=== PATIENT | female | born 1965 | race Caucasian/White ===

== ENCOUNTER 2020-05-22 07:43 | Outpatient (CLI) | payer OTHER, SELFPAY ==
--- NOTE | ~2020-05-22 | CT_ITS ---
EXAMINATION: CT abdomen pelvis w con DATE: 05/22/2020 08:23 INDICATION: Severe right lower quadrant pain which is worsening TECHNIQUE: Computed tomography (CT) of the abdomen and pelvis was performed with 100 cc Omnipaque 350 intravenous contrast. The dose-length product was 700.75 mGy-cm. Automated exposure control and iter ative reconstruction technique were employed. COMPARISON: None. FINDINGS: Lung bases are unremarkable. Heart size is normal. No significant pleural or pericardial ef fusion. Small hiatal hernia. No significant vascular abnormality. No lymphadenopathy. The liver, spleen, pancreas, adrenal glands and kidneys are unremarkable. The appendix is not positiv milad visualized. There is no pericecal inflammatory change to suggest appendicitis. Gallbladder is mi ldly distended. No biliary dilatation. No abnormal pelvic masses or fluid collections. 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 No abnormal pelvic masses or fluid collections. No evidence for obstruction. No free air or free fluid. Moderate lower lumbar s pondylosis. IMPRESSION: 1. No acute abdominal abnormality. Reviewed, dictated and finalized at location B.
[2020-05-22 07:57] LABS: Add Urine Microscopic? NO; Appearance Urine Clear (Clear); Bilirubin Urine Negative (Negative); Blood Urine Negative (Negative); Color Urine Yellow (Yellow); Glucose Urine UA Negative (Negative); Ketones Urine Negative (Negative); Leukocyte Esterase Ur Negative (Negative); Nitrate Urine Negative (Negative); Protein Urine Negative (Negative); Urobilinogen Urine 0.2 mg/dL (0.2-1.0)
[2020-05-22 08:28] LABS: Basophils Absolute Auto 0.07 K/mm3 (0.00-0.10); Basophils Percent Auto 1.5 % (0.0-1.0); Eosinophils Absolute Auto 0.07 K/mm3 (0.02-0.50); Eosinophils Percent Auto 1.5 % (1.0-6.0); Hematocrit 37.5 % (35.0-49.0); Hemoglobin 12.2 g/dL (12.0-15.0); Immature Granulocyte Absolute 0.01 K/mm3 (0.00-0.00); Immature Granulocyte Percent A 0.2 % (0.0-0.0); Lymphocytes Absolute Auto 1.15 K/mm3 (1.10-4.50); Lymphocytes Percent Auto 24.7 % (18.0-42.0); Mean Corpuscular HGB Conc 32.5 g/dL (32.0-36.0); Mean Corpuscular Hemoglobin 30.7 pg (27.0-31.0); Mean Corpuscular Volume 94.5 fL (78.0-102.0); Mean Platelet Volume 9.2 fl (9.2-11.8); Monocytes Absolute Auto 0.29 K/mm3 (0.10-0.90); Monocytes Percent Auto 6.2 % (2.0-11.0); Neutrophils Absolute Auto 3.1 K/mm3 (1.7-7.2); Neutrophils Percent Auto 65.9 % (50.0-70.0); Platelet Count Result 190 K/mm3 (150-420); Red Blood Count 3.97 M/mm3 (4.20-5.40); Red Cell Distribution Width 13.2 % (11.6-14.4); White Blood Count 4.7 K/mm3 (4.8-10.8)
[2020-05-22 09:10] LABS: Alanine Aminotransferase 19 U/L (14-59); Albumin Level 3.2 g/dL (3.4-5.0); Alkaline Phosphatase 70 U/L (46-116); Anion Gap 7.2 mmol/L (7-16); Aspartate Amino Transferase 15 U/L (15-37); Bilirubin,Total 0.6 mg/dL (0.00-1.00); Blood Urea Nitrogen 13 mg/dL (7-18); Calcium 7.8 mg/dL (8.5-10.1); Carbon Dioxide 30 mmol/L (21-32); Chloride 101 mmol/L (98-108); Estimated Glomerular Filt Rate > 60; Glucose 100 mg/dL (70-99); Osmolality Calculated 278 mOsm/kg (285-295); Potassium 4.2 mmol/L (3.5-5.1); Sodium 134 mmol/L (136-145); Thyroid Stimulating Hormone 2.25 uIU/mL (0.36-3.74); Total Protein 6.2 g/dL (6.4-8.2)
== END 2020-05-22 07:44 | disposition home or self-care (01) ==
LOC: CHSIMG 07:45
PROVIDERS: PCP Internal Medicine; Visit Provider Internal Medicine
DX: R10.31 Right lower quadrant pain (principal); E03.9 Hypothyroidism, unspecified
CPT/HCPCS: 36415; 74177; 80053; 81003; 84443; 85025; Q9965

== ENCOUNTER 2020-06-29 08:43 | Outpatient (CLI) | payer OTHER, SELFPAY ==
--- NOTE | ~2020-06-29 | MM_ITS ---
EXAMINATION: MM screening [facility] BI w ambar HISTORY: Screening mammogram TECHNIQUE: Craniocaudal and mediolateral oblique 3-D tomosynthesis images were obtained and synthetic 2-D images were generated. CAD analysis was submitted and interpreted. COMPARISON: 06/12/2019, 06/04/2018, 06/01/2017 BREAST PARENCHYMAL COMPOSITION: There are scattered areas of fibroglandular density. FINDINGS: There is no evidence of suspicious mass, calcification, or architectural distortion to sugg est malignancy in either breast. There has been no suspicious interval change. IMPRESSION: 1. No mammographic evidence of malignancy. 2. Recommend routine screening mammography in one year. BI-RADS Category 1: Negative Reviewed, dictated and finalized at location A.
== END 2020-06-29 08:44 | disposition home or self-care (01) ==
PROVIDERS: PCP Internal Medicine; Visit Provider Nurse Practitioner
DX: Z12.31 Encounter for screening mammogram for malignant neoplasm of breast (principal)
CPT/HCPCS: 77063; 77067

== ENCOUNTER 2020-07-15 08:56 | Outpatient (CLI) | payer OTHER, SELFPAY ==
[2020-07-18 11:36] LABS: Vitamin D 25 Hydroxy 54 ng/mL (30-100)
== END 2020-07-15 08:57 | disposition home or self-care (01) ==
LOC: CHSLAB 08:58
PROVIDERS: PCP Internal Medicine; Visit Provider Nurse Practitioner
DX: E55.9 Vitamin D deficiency, unspecified (principal)
CPT/HCPCS: 36415; 82306

== ENCOUNTER 2021-01-29 07:43 | Outpatient (CLI) | payer OTHER, SELFPAY ==
--- NOTE | ~2021-01-29 | NM_ITS ---
EXAMINATION: NM hepatobiliary w pharm DATE: 01/29/2021 10:00 INDICATION: Dyspepsia with one year of abdominal pain. COMPARISON: CT dated 05/22/2020 TECHNIQUE: 5.9 mCi Tc-99m mebrofenin (Choletec) was administered intravenously. Scintigraphic images of the abdomen were obtained for one hour. 1.7 mcg sincalide (Kinevac) was administered by slow intr avenous infusion, and imaging was continued for 30 minutes. Gallbladder ejection fraction was calcula nichole by the technologist. FINDINGS: There is normal clearance of radiotracer from the blood pool. There is homogeneous tracer uptake by t he liver. Activity progresses to the gallbladder and bowel. The gallbladder ejection fraction (GBEF) is 7% (normal 10-90%, but most patient with gallbladder dysfunction have GBEF < 35% which does overl ap with the normal range). IMPRESSION: 1. Significantly decreased gallbladder ejection fraction which can be seen with gallbladder dysfunct ion or chronic cholecystitis in the appropriate clinical setting. Reviewed, dictated and finalized at location A. IMPRESSION: 1. Significantly decreased gallbladder ejection fraction which can be seen wit h gallbladder dysfunction or chronic cholecystitis in the appropriate clinical setting.
[2021-01-29 07:58] LABS: Basophils Absolute Auto 0.05 K/mm3 (0.00-0.10); Basophils Percent Auto 0.8 % (0.0-1.0); Eosinophils Absolute Auto 0.11 K/mm3 (0.02-0.50); Eosinophils Percent Auto 1.7 % (1.0-6.0); Hematocrit 39.9 % (35.0-49.0); Hemoglobin 12.9 g/dL (12.0-15.0); Immature Granulocyte Absolute 0.03 K/mm3 (0.00-0.00); Immature Granulocyte Percent A 0.5 % (0.0-0.0); Lymphocytes Absolute Auto 1.46 K/mm3 (1.10-4.50); Lymphocytes Percent Auto 22.4 % (18.0-42.0); Mean Corpuscular HGB Conc 32.3 g/dL (32.0-36.0); Mean Corpuscular Hemoglobin 30.4 pg (27.0-31.0); Mean Corpuscular Volume 94.1 fL (78.0-102.0); Mean Platelet Volume 9.4 fl (9.2-11.8); Monocytes Absolute Auto 0.35 K/mm3 (0.10-0.90); Monocytes Percent Auto 5.4 % (2.0-11.0); Neutrophils Absolute Auto 4.5 K/mm3 (1.7-7.2); Neutrophils Percent Auto 69.2 % (50.0-70.0); Platelet Count Result 227 K/mm3 (150-420); Red Blood Count 4.24 M/mm3 (4.20-5.40); Red Cell Distribution Width 13.2 % (11.6-14.4); White Blood Count 6.5 K/mm3 (4.8-10.8)
[2021-01-29 08:45] LABS: Alanine Aminotransferase 23 U/L (14-59); Albumin Level 3.5 g/dL (3.4-5.0); Alkaline Phosphatase 82 U/L (46-116); Anion Gap 9 mmol/L (8-16); Aspartate Amino Transferase 11 U/L (15-37); Bilirubin,Total 0.5 mg/dL (0.00-1.00); Blood Urea Nitrogen 20 mg/dL (7-18); Calcium 8.7 mg/dL (8.5-10.1); Carbon Dioxide 29 mmol/L (21-32); Chloride 102 mmol/L (98-108); Estimated Glomerular Filt Rate > 60; Glucose 105 mg/dL (70-99); Osmolality Calculated 292 mOsm/kg (285-295); Potassium 4.3 mmol/L (3.5-5.1); Sodium 140 mmol/L (136-145); Thyroid Stimulating Hormone 3.33 uIU/mL (0.36-3.74); Total Protein 6.8 g/dL (6.4-8.2)
[2021-01-29 09:56] LABS: Add Urine Microscopic? YES; Appearance Urine Clear (Clear); Bilirubin Urine Negative (Negative); Blood Urine Negative (Negative); Color Urine Yellow (Yellow); Glucose Urine UA Negative (Negative); Ketones Urine Negative (Negative); Leukocyte Esterase Ur Negative (Negative); Nitrate Urine Positive (Negative); Protein Urine Negative (Negative); Urobilinogen Urine 0.2 mg/dL (0.2-1.0); pH Urine 6.5 (5.0-8.0)
[2021-01-29 10:04] LABS: Bacteria Urine 3+ /hpf; RBC Urine None seen /hpf (0-2); Squamous Epithelial Cell Urine Few /hpf (Few)
[2021-02-03 13:13] LABS: Tissue Transglutaminase IgG Ab 2 U/mL (<6)
[2021-02-05 16:01] LABS: Tissue Transglutaminase IgA Ab 1 U/mL (<4)
== END 2021-01-29 07:44 | disposition home or self-care (01) ==
PROVIDERS: PCP Internal Medicine; Visit Provider Internal Medicine
DX: R10.13 Epigastric pain (principal); E83.51 Hypocalcemia; E88.09 Other disorders of plasma-protein metabolism, not elsewhere classified; N39.0 Urinary tract infection, site not specified
CPT/HCPCS: 36415; 78227; 80053; 81001; 83516; 84443; 85025; 87077; 87086; 87088; 87186; A9537; J2805

== ENCOUNTER 2021-02-11 08:19 | Outpatient (CLI) | payer OTHER, SELFPAY ==
--- NOTE | ~2021-02-11 | US_ITS ---
EXAMINATION: US abdomen limited DATE: 02/11/2021 08:41 INDICATION: Right abdominal pain. TECHNIQUE: Multiple grayscale and Doppler ultrasound images of the abdomen were obtained. COMPARISON: CT abdomen and pelvis 05/22/2020 FINDINGS: The visualized portions of the head, body, and tail of the pancreas are normal. The liver i s normal without focal lesion. No liver surface nodularity. There is normal flow in main portal vein. The gallbladder is normal in size and contains sludge. No gallstones or gallbladder wall thickening. There was no sonographic Chambers sign. The common duct is normal and measures 4 mm. IMPRESSION: 1. Gallbladder sludge. No evidence of acute cholecystitis. Reviewed, dictated and finalized at location A.
== END 2021-02-11 08:20 | disposition home or self-care (01) ==
LOC: CHSIMG 08:20
PROVIDERS: PCP Internal Medicine; Visit Provider Surgery
DX: K82.8 Other specified diseases of gallbladder (principal)
CPT/HCPCS: 76705

== ENCOUNTER 2021-04-14 08:00 | Outpatient (CLI) | payer OTHER, SELFPAY ==
[2021-04-16 13:44] LABS: Vitamin D 25 Hydroxy 70 ng/mL (30-100)
== END 2021-04-14 08:01 | disposition home or self-care (01) ==
LOC: CHSLAB 08:02
PROVIDERS: PCP Internal Medicine; Visit Provider Nurse Practitioner
DX: E55.9 Vitamin D deficiency, unspecified (principal)
CPT/HCPCS: 36415; 82306

== ENCOUNTER 2021-06-30 09:03 | Outpatient (CLI) | payer OTHER, SELFPAY ==
--- NOTE | ~2021-06-30 | MM_ITS ---
EXAMINATION: MM screening [facility] BI w ambar HISTORY: Screening mammogram TECHNIQUE: Craniocaudal and mediolateral oblique 3-D tomosynthesis images were obtained and synthetic 2-D images were generated. CAD analysis was submitted and interpreted. COMPARISON: 06/29/2020, 06/12/2019, 06/04/2018 BREAST PARENCHYMAL COMPOSITION: There are scattered areas of fibroglandular density. FINDINGS: RIGHT BREAST: An asymmetry is present in the anterior third of the slightly inner breast on the crani ocaudal view.. LEFT BREAST: There is an obscured mass in the subareolar aspect of the breast. IMPRESSION: 1. Bilateral breast findings as described above. 2. Additional mammographic views and possible breast ultrasound are recommended. BI-RADS Category 0: Incomplete: Needs additional imaging evaluation. Reviewed, dictated and finalized at location A. IMPRESSION: 1. Bilateral breast findings as described above. 2. Additional mammographic views and possible breast ultrasound are recommended . BI-RADS Category 0: Incomplete: Needs additional imaging evaluation.
== END 2021-06-30 09:04 | disposition home or self-care (01) ==
LOC: CHSIMG 09:04
PROVIDERS: PCP Internal Medicine; Visit Provider Nurse Practitioner
DX: Z12.31 Encounter for screening mammogram for malignant neoplasm of breast (principal)
CPT/HCPCS: 77063; 77067

== ENCOUNTER 2021-07-02 08:55 | Outpatient (CLI) | payer OTHER, SELFPAY ==
--- NOTE | ~2021-07-02 | MMUS_ITS ---
EXAMINATION: MM diagnostic [facility] BI w ambar, US breast BI limited HISTORY: Right breast asymmetry and subareolar left breast mass on screening mammogram TECHNIQUE: Additional 3-D tomosynthesis images of the breasts were performed and synthetic 2-D images were generated. CAD analysis was submitted and interpreted. High resolution limited bilateral breast ultrasound was performed. COMPARISON: 06/30/2021, 06/29/2020, 06/12/2019, 06/04/2018 FINDINGS: MAMMOGRAPHIC FINDINGS: Left breast: There is a persistent obscured, equal density mass in the slightly inner, subareolar lef t breast measuring approximately 2.1 cm. Right breast: An asymmetry persists in the anterior third of the slightly inner right breast at the 3 :00 location 2 cm from the nipple. ULTRASOUND: Left breast: There is a 1.9 cm subareolar cyst corresponding to the mammographic finding in question. Right breast: There is a 4 mm x 2 mm oval, circumscribed, parallel, hypoechoic mass at the 4:00 locat ion 2 cm from the nipple with no posterior features or internal vascularity. A 4 mm x 3 mm mass with similar sonographic features is seen at the same location. IMPRESSION: 1. Probably benign right breast masses. 2. Recommend 6 month follow-up right diagnostic mammogram and ultrasound. BI-RADS category 3, probably benign findings. Reviewed, dictated and finalized at location A. IMPRESSION: 1. Probably benign right breast masses. 2. Recommend 6 month follow-up right diagnostic mammogram and ultrasound. BI-RADS category 3, probably benign findings.
== END 2021-07-02 08:56 | disposition home or self-care (01) ==
LOC: CHSIMG 08:56
PROVIDERS: PCP Internal Medicine; Visit Provider Nurse Practitioner
DX: R92.8 Other abnormal and inconclusive findings on diagnostic imaging of breast (principal)
CPT/HCPCS: 76642; 77062; 77066; G0279

== ENCOUNTER 2021-07-05 12:20 | Outpatient (CLI) | payer OTHER, SELFPAY ==
--- NOTE | ~2021-07-05 | DEXA_ITS ---
Bone Density Report Name: Yessica Smith Age: 56 Sex: Female Ethnicity: White Date of : 1965 Indication: hyperparathyroidism; hysterectomy; Referring Provider: Leila, Elva Study: Bone densitometry was performed. Exam Date: July 05, 2021 Accession number: [id number] Bone Density: Region BMD T-score Z-score Classification AP Spine(L1, L2, L3) 1.130 1.0 2.3 Normal Femoral Neck (Left) 0.859 0.1 1.3 Normal Total Hip (Left) 1.007 0.5 1.4 Normal Femoral Neck (Right) 0.873 0.2 1.4 Normal Total Hip (Right) 1.082 1.1 2.0 Normal Femoral Neck Mean 0.866 0.2 1.3 Normal Total Hip Mean 1.045 0.8 1.7 Normal World Health Organization criteria for BMD impression classify patients as: Normal (T-score at or above -1.0), Osteopenia (T-score between -1.0 and -2.5), or Osteoporosis (T-score at or below -2.5). 10-year Fracture Risk: FRAX not reported because: Premenopausal woman All T-scores for Spine Total, Hip Total, Femoral Neck at or above -1.0 Previous Exams: Region Exam Age BMD T-score BMD Change BMD Change Date g/cm2 vs Baseline vs Previous AP Spine (L1-L3) 07/05/2021 56 1.130 1.0 0.026 (2.4%)# 0.025 (2.2%)# 06/12/2019 53 1.105 0.8 0.002 (0.1%)! -0.010 (-0.9%) 05/04/2016 50 1.115 0.9 0.011 (1.0%)! 0.081 (7.8%)* 08/26/2013 48 1.034 0.1 -0.070 (-6.3%) -0.070 (-6.3%) 01/09/2009 43 1.104 0.8 Total Hip(Left) 07/05/2021 56 1.007 0.5 0.005 (0.5%)# 0.015 (1.6%)# 06/12/2019 53 0.992 0.4 -0.010 (-1.0%) -0.020 (-2.0%) 05/04/2016 50 1.012 0.6 0.010 (1.0%) 0.028 (2.9%)* 08/26/2013 48 0.984 0.3 -0.019 (-1.9%) -0.019 (-1.9%) 01/09/2009 43 1.002 0.5 Total Hip(Right) 07/05/2021 56 1.082 1.1 0.057 (5.6%)# 0.064 (6.3%)# 06/12/2019 53 1.018 0.6 -0.007 (-0.6%) 0.009 (0.9%) 08/26/2013 48 1.009 0.5 -0.016 (-1.6%) -0.016 (-1.6%) 01/09/2009 43 1.025 0.7 *Denotes significance at 95% confidence level, LSC for AP Spine = 0.022 g/cm2, LSC for Total Hip = 0.027 g/cm2 # Denotes dissimilar scan types or analysis methods Clinical Information Provided by Patient: Has used the following medications: HRT (i.e. estrogen/hormone therapy), Vitamin D Has the following medical conditions: Hyperparathyroidism, Hysterectomy Patient maximum height was 65 No regular weight bearing exercise Drinks caffeinated beverages Onset of menses at age 11 Premenopausal Number of children 1 ---
== END 2021-07-05 12:21 | disposition home or self-care (01) ==
LOC: CHSIMG 12:22
PROVIDERS: PCP Internal Medicine; Visit Provider Nurse Practitioner
DX: Z13.820 Encounter for screening for osteoporosis (principal)
CPT/HCPCS: 77080

== ENCOUNTER 2021-09-29 07:05 | Outpatient (CLI) | payer OTHER, SELFPAY ==
[2021-09-29 07:18] LABS: Hematocrit 40.1 % (35.0-49.0); Hemoglobin 12.9 g/dL (12.0-15.0); Mean Corpuscular HGB Conc 32.2 g/dL (32.0-36.0); Mean Corpuscular Hemoglobin 30.2 pg (27.0-31.0); Mean Corpuscular Volume 93.9 fL (78.0-102.0); Mean Platelet Volume 9.5 fl (9.2-11.8); Platelet Count Result 246 K/mm3 (150-420); Red Blood Count 4.27 M/mm3 (4.20-5.40); White Blood Count 6.1 K/mm3 (4.8-10.8)
[2021-09-29 08:48] LABS: Anion Gap 10 mmol/L (8-16); Blood Urea Nitrogen 15 mg/dL (7-18); Calcium 8.5 mg/dL (8.5-10.1); Carbon Dioxide 27 mmol/L (21-32); Chloride 103 mmol/L (98-108); Estimated Glomerular Filt Rate > 60; Glucose 99 mg/dL (70-99); Osmolality Calculated 290 mOsm/kg (285-295); Potassium 4.5 mmol/L (3.5-5.1); Sodium 140 mmol/L (136-145)
== END 2021-09-29 07:06 | disposition home or self-care (01) ==
PROVIDERS: PCP Internal Medicine
DX: Z01.818 Encounter for other preprocedural examination (principal)
CPT/HCPCS: 36415; 80048; 85027

== ENCOUNTER 2021-12-13 11:20 | Outpatient (CLI) | payer OTHER, SELFPAY ==
--- NOTE | ~2021-12-13 | XR_ITS ---
XR hand LT min 3V DATE: 12/13/2021 11:33 INDICATION: Left hand pain, third digit pain. TECHNIQUE: 3 views COMPARISON: None FINDINGS: No fracture or dislocation, periosteal reaction or bone destruction. No erosive change or c hondrocalcinosis. IMPRESSION: No significant abnormality Reviewed, dictated and finalized at location A. IDER ENROLLMENT SPECIALIST IMPRESSION: No significant abnormality
== END 2021-12-13 11:21 | disposition home or self-care (01) ==
LOC: CHSIMG 11:22
PROVIDERS: PCP Internal Medicine; Visit Provider Internal Medicine
DX: M79.642 Pain in left hand (principal)
CPT/HCPCS: 73130

== ENCOUNTER 2022-01-03 07:23 | Outpatient (CLI) | payer OTHER, SELFPAY ==
[2022-01-03 09:06] LABS: Alanine Aminotransferase 20 U/L (14-59); Albumin Level 3.5 g/dL (3.4-5.0); Alkaline Phosphatase 83 U/L (46-116); Anion Gap 9 mmol/L (8-16); Aspartate Amino Transferase 13 U/L (15-37); Bilirubin,Total 0.5 mg/dL (0.00-1.00); Blood Urea Nitrogen 15 mg/dL (7-18); Calcium 8.5 mg/dL (8.5-10.1); Carbon Dioxide 27 mmol/L (21-32); Chloride 103 mmol/L (98-108); Cholesterol 257 mg/dL (0-200); Estimated Glomerular Filt Rate > 60; Glucose 102 mg/dL (70-99); HDL Direct 66 mg/dL (40-60); LDL Cholesterol Calculated 143 mg/dL (<130); Osmolality Calculated 288 mOsm/kg (285-295); Potassium 4.3 mmol/L (3.5-5.1); Sodium 139 mmol/L (136-145); Thyroid Stimulating Hormone 1.75 uIU/mL (0.36-3.74); Total Protein 6.9 g/dL (6.4-8.2); Triglycerides 239 mg/dL (0-150)
== END 2022-01-03 07:24 | disposition home or self-care (01) ==
LOC: CHSLAB 07:25
PROVIDERS: PCP Internal Medicine; Visit Provider Internal Medicine
DX: Z00.00 Encounter for general adult medical examination without abnormal findings (principal); E03.9 Hypothyroidism, unspecified
CPT/HCPCS: 36415; 80053; 80061; 84443

== ENCOUNTER 2022-04-16 08:03 | Outpatient (CLI) | payer OTHER, SELFPAY ==
[2022-04-16 08:46] LABS: Hemoglobin A1C 5.5 % (<5.7)
[2022-04-19 19:31] LABS: Vitamin D 25 Hydroxy 60 ng/mL (30-100)
[2022-04-24 04:48] LABS: Insulin Level Total 4.6 uIU/mL (<=19.6)
== END 2022-04-16 08:04 | disposition home or self-care (01) ==
LOC: CHSLAB 08:05
PROVIDERS: PCP Internal Medicine; Visit Provider Nurse Practitioner
DX: E55.9 Vitamin D deficiency, unspecified (principal); Z13.1 Encounter for screening for diabetes mellitus
CPT/HCPCS: 36415; 82306; 83036; 83525

== ENCOUNTER 2022-06-03 08:24 | Outpatient (CLI) | payer OTHER, SELFPAY ==
--- NOTE | ~2022-06-03 | MM_ITS ---
EXAMINATION: MM diagnostic patricia BI w ambar HISTORY: Six-month follow-up of probably benign right breast masses was recommended on 07/02/2021 bila teral diagnostic mammography and bilateral Limited breast ultrasound examinations. Screening of left breast. TECHNIQUE: ML, MLO and CC 3-D tomosynthesis images of both breasts were performed and synthetic 2-D i mages were generated. CAD analysis was submitted and interpreted. COMPARISON: 07/02/2021 bilateral diagnostic mammography and Limited bilateral breast ultrasound 06/30/2021, 06/25/2020, 06/12/2019 and 06/04/2018 bilateral screening mammogram examinations BREAST PARENCHYMAL COMPOSITION: There are scattered areas of fibroglandular density. FINDINGS: No suspicious mass, architectural distortion or significant new or developing density of ei ther breast is detected IMPRESSION: 1. No mammographic evidence of malignancy of either breast is evident 2. Right breast ultrasound follow-up is recommended as suggested on 07/02/2021 bilateral diagnostic ma mmography and limited breast ultrasound examinations BI-RADS Category 0: Incomplete: Needs additional imaging evaluation. Reviewed, dictated and finalized at location B. IMPRESSION: 1. No mammographic evidence of malignancy of either breast is evident 2. Right breast ultrasound follow-up is recommended as suggested on 07/02/2021 b ilateral diagnostic mammography and limited breast ultrasound examinations BI-RADS Category 0: Incomplete: Needs additional imaging evaluation.
== END 2022-06-03 08:25 | disposition home or self-care (01) ==
LOC: CHSIMG 08:25
PROVIDERS: PCP Internal Medicine; Visit Provider Obstetrics & Gynecology Gynecology
DX: R92.8 Other abnormal and inconclusive findings on diagnostic imaging of breast (principal)
CPT/HCPCS: 77062; 77066; G0279

== ENCOUNTER 2022-06-06 10:08 | Outpatient (CLI) | payer OTHER, SELFPAY ==
--- NOTE | ~2022-06-06 | US_ITS ---
US breast BI complete 06/06/2022 10:46 Indication: Follow-up bilateral breast masses Procedure: High-resolution bilateral complete ultrasound of the breasts including all 4 quadrants in the subareolar locations Comparison: Ultrasound dated 07/02/2021 and mammogram dated 06/03/2022 Findings: Right breast: At 4:00, 2 cm from the nipple there is a 4 mm cyst. No other masses identified. There a re normal-appearing right axillary lymph nodes. Left breast: In the subareolar location there is a 2.8 cm cyst. No suspicious masses to suggest malig destiny. There are normal left axillary lymph nodes. Impression: 1: No sonographic evidence for malignancy in either breast. Routine yearly screening mammogram and regular clinical breast examination are recommended. BI-RADS CATEGORY 2 - BENIGN FINDINGS Reviewed, dictated and finalized at location A. Impression: 1: No sonographic evidence for malignancy in either breast. Routine yearly screening mammogram and regular clinical breast examination are recommended. BI-RADS CATEGORY 2 - BENIGN FINDINGS
== END 2022-06-06 10:09 | disposition home or self-care (01) ==
LOC: CHSIMG 10:10
PROVIDERS: PCP Internal Medicine; Visit Provider Obstetrics & Gynecology Gynecology
DX: R92.8 Other abnormal and inconclusive findings on diagnostic imaging of breast (principal)
CPT/HCPCS: 76641

== ENCOUNTER 2022-07-09 07:10 | Outpatient (CLI) | payer OTHER, SELFPAY ==
[2022-07-09 07:24] LABS: Basophils Absolute Auto 0.08 K/mm3 (0.00-0.10); Basophils Percent Auto 1.1 % (0.0-1.0); Eosinophils Absolute Auto 0.16 K/mm3 (0.02-0.50); Eosinophils Percent Auto 2.2 % (1.0-6.0); Hemoglobin 12.7 g/dL (12.0-15.0); Immature Granulocyte Absolute 0.02 K/mm3 (0.00-0.00); Immature Granulocyte Percent A 0.3 % (0.0-0.0); Lymphocytes Absolute Auto 1.71 K/mm3 (1.10-4.50); Mean Corpuscular HGB Conc 32.6 g/dL (32.0-36.0); Mean Corpuscular Hemoglobin 30.2 pg (27.0-31.0); Mean Corpuscular Volume 92.6 fL (78.0-102.0); Mean Platelet Volume 9.4 fl (9.2-11.8); Monocytes Percent Auto 5.4 % (2.0-11.0); Neutrophils Absolute Auto 5.1 K/mm3 (1.7-7.2); Platelet Count Result 254 K/mm3 (150-420); Red Blood Count 4.21 M/mm3 (4.20-5.40); Red Cell Distribution Width 13.3 % (11.6-14.4); White Blood Count 7.4 K/mm3 (4.8-10.8)
[2022-07-09 07:32] LABS: Appearance Urine Clear (Clear); Bilirubin Urine Negative (Negative); Color Urine Light Yellow (Yellow); Glucose Urine UA Negative (Negative); Ketones Urine Negative (Negative); Leukocyte Esterase Ur Negative (Negative); Nitrate Urine Negative (Negative); Protein Urine Negative (Negative); pH Urine 7.5 (5.0-8.0)
[2022-07-09 07:36] LABS: Add Urine Microscopic? YES; Blood Urine Trace-Intact (Negative); RBC Urine 0-2 /hpf (0-2); WBC Urine 0-3 /hpf (0-3)
[2022-07-09 07:37] LABS: Bacteria Urine 1+ /hpf; Squamous Epithelial Cell Urine Moderate /hpf (Few)
[2022-07-09 07:49] LABS: Alanine Aminotransferase 19 U/L (14-59); Albumin Level 3.3 g/dL (3.4-5.0); Alkaline Phosphatase 87 U/L (46-116); Anion Gap 8 mmol/L (8-16); Aspartate Amino Transferase 14 U/L (15-37); Bilirubin,Total 0.5 mg/dL (0.00-1.00); Blood Urea Nitrogen 11 mg/dL (7-18); Calcium 8.8 mg/dL (8.5-10.1); Carbon Dioxide 28 mmol/L (21-32); Chloride 101 mmol/L (98-108); Cholesterol 206 mg/dL (0-200); Estimated Glomerular Filt Rate > 60; Glucose 108 mg/dL (70-99); HDL Direct 72 mg/dL (40-60); LDL Cholesterol Calculated 97 mg/dL (<130); Osmolality Calculated 284 mOsm/kg (285-295); Potassium 4.1 mmol/L (3.5-5.1); Sodium 137 mmol/L (136-145); Thyroid Stimulating Hormone 3.61 uIU/mL (0.36-3.74); Triglycerides 184 mg/dL (0-150)
== END 2022-07-09 07:11 | disposition home or self-care (01) ==
LOC: CHSLAB 07:11
PROVIDERS: PCP Internal Medicine; Visit Provider Internal Medicine
DX: Z00.00 Encounter for general adult medical examination without abnormal findings (principal); R60.9 Edema, unspecified
CPT/HCPCS: 36415; 80053; 80061; 81001; 84443; 85025

== ENCOUNTER 2022-10-06 00:44 | Day surgery (SDC) | payer OTHER, SELFPAY ==
[2022-09-21 10:38] VITALS: BMI 33.3
[2022-10-06 06:20] VITALS: BP 151/75; PULSE 80; RESP 18; TEMP 36.4; O2SAT 96
[2022-10-06] MEDS: LACTATED RINGERS 1,000 ML 150 ML IV CONT (06:31)
--- NOTE | 2022-10-06 07:20 | WPDANESEPPF ---
Anes - Initial Pre Proc Eval Procedure: Operation Date: 10/06/22 07:30 Proposed Procedures p Esophagogastroduodenoscopy EGD - William Palomo DO Date/Time: 10/06/22 07:20 Surgeon: William Palomo DO Pre Op Diagnosis: upper abd pain, dysphagia Patient Data Age: 57 Gender: F Height: 1.65 m Weight: 93.3 kg Last Vital Signs Temp 36.4 C L 10/06/22 06:20 Pulse 80 10/06/22 06:20 Resp 18 10/06/22 06:20 BP 151/75 H 10/06/22 06:20 Pulse Ox 96 10/06/22 06:20 O2 Del Method Room Air 10/06/22 06:20 Allergies Allergy/AdvReac Type Severity Reaction Status Date / Time Sulfa (Sulfonamide Allergy Unknown Rash Verified 10/06/22 06:18 Antibiotics) SULFAMERAZINE (Generic Allergy Y Uncoded 10/06/22 06:18 Allergy) Home Medications Medication Instructions Recorded Confirmed Type citalopram 20 mg tablet 20 mg PO DAILY 02/01/21 09/21/22 History ergocalciferol (vitamin D2) 1,250 1,250 mcg PO WEEKLY 02/01/21 09/21/22 History mcg (50,000 unit) capsule (Vitamin D2) estradiol 1 mg tablet 1 mg PO DAILY 02/01/21 09/21/22 History levothyroxine 100 mcg capsule 100 mcg PO DAILY 02/01/21 09/21/22 History vitamin B complex (B 1 tablet PO DAILY 02/01/21 09/21/22 History Complex-Vitamin B12 tablet) calcium polycarbophil 625 mg 1,250 mg PO DAILY 08/26/22 09/21/22 History tablet (FiberCon) omeprazole 20 mg capsule,delayed 20 mg PO DAILY 08/26/22 09/21/22 History release Patient hx anesthesia problems: none Family hx anesthesia problems: none Results Review: All pre-operative results and documents have been reviewed as part of the pre-operative evaluation. 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 Informed Consent: The patient's anesthetic plan and its attendant risks and benefits were discussed with the patient/family/POA. Questions were solicited and answers provided to the satisfaction of the patient/family/POA.
--- NOTE | 2022-10-06 07:28 | PM.IMHP ---
H&P: HPI History of Present Illness Date/Time: 10/06/22 07:28 Chief Complaint: Abdominal pain Narrative: 57 yo woman presenst for EGD. She has had some abdominal pain off and on. She occasionally has regurgitation of food and has taken omeprazole in the past. Review of Systems Review of Systems: All systems reviewed & are unremarkable except as noted in HPI and below Constitutional: Constitutional: Denies chills, Denies fever(s), Denies headache(s) and Denies weight loss Eyes: Eyes: Denies change in vision ENT: Denies dizziness, Denies headache(s), Denies neck mass and Denies throat swelling Cardiovascular: Cardiovascular: Denies chest pain, Denies lightheadedness and Denies dyspnea Respiratory: Respiratory: Denies cough, Denies dyspnea and Denies wheezing Gastrointestinal: Gastrointestinal: Denies abdominal pain, Denies change in bowel habits, Denies nausea and Denies vomiting Genitourinary: Genitourinary: Denies hematuria and Denies dysuria Musculoskeletal: Musculoskeletal: Reports as per HPI Integumentary/Breasts: Skin/Breast: Reports as per HPI Neurologic: Denies dizziness and Denies headache(s) Allergic/Immunologic: Allergic/Immunologic: Denies throat swelling and Denies wheezing PMFSH Past Medical History Medical History GERD (gastroesophageal reflux disease) Demian's disease Hyperlipidemia Surgical History Surgical History History of appendectomy As a child History of tonsillectomy and adenoidectomy As a child History of total abdominal hysterectomy vaginal approach Rectocele 10/[address] 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[employer] Spiritual care concerns: No Meds Home Medications and Allergies Home Medications Medication Instructions Recorded Confirmed Type citalopram 20 mg tablet 20 mg PO DAILY 02/01/21 09/21/22 History ergocalciferol (vitamin D2) 1,250 1,250 mcg PO WEEKLY 02/01/21 09/21/22 History mcg (50,000 unit) capsule (Vitamin D2) estradiol 1 mg tablet 1 mg PO DAILY 02/01/21 09/21/22 History levothyroxine 100 mcg capsule 100 mcg PO DAILY 02/01/21 09/21/22 History vitamin B complex (B 1 tablet PO DAILY 02/01/21 09/21/22 History Complex-Vitamin B12 tablet) calcium polycarbophil 625 mg 1,250 mg PO DAILY 08/26/22 09/21/22 History tablet (FiberCon) omeprazole 20 mg capsule,delayed 20 mg PO DAILY 08/26/22 09/21/22 History release Allergies Allergy/AdvReac Type Severity Reaction Status Date / Time Sulfa (Sulfonamide Allergy Unknown Rash Verified 10/06/22 06:18 Antibiotics) SULFAMERAZINE (Generic Allergy Y Uncoded 10/06/22 06:18 Allergy) Vital Signs Vital Signs - 24 hr 10/06/22 06:20 Temperature 36.4 C L Pulse Rate 80 Respiratory Rate 18 Blood Pressure 151/75 H Pulse Oximetry 96 Oxygen Delivery Room Air Exam Const: General: no acute distress and alert Orientation/consciousness: patient oriented x3 HENMT: Head: normocephalic and atraumatic Ears: hearing grossly normal bilaterally Face/Nose/Sinus: Normal nares present Mouth: Yes Normal oral and palatal mucosa present Eyes: Periorbital: periorbital findings normal Sclera: sclerae normal EOM: EOMs intact bilaterally Neck: Neck: normal visual inspection, no lymphadenopathy and trachea midline Chest: Chest palpation & inspection: normal inspection of the chest Resp: Effort & Inspection: normal respiratory effort Auscultation: clear to auscultation bilaterally Cardio: Jugular venous distension: no JVD Rate: regular rate Rhythm: regular rhyth
[2022-10-06 07:42] VITALS: BP 111/64; PULSE 60; RESP 22; O2SAT 98
[2022-10-06 07:52] VITALS: BP 114/77; PULSE 57; RESP 22; O2SAT 98
[2022-10-06 08:02] VITALS: BP 122/63; PULSE 70; RESP 24; O2SAT 98
== END 2022-10-06 08:11 | disposition home or self-care (01) ==
PROVIDERS: PCP Internal Medicine; Visit Provider Surgery
PROC: 0DJ08ZZ Inspection of Upper Intestinal Tract, Via Natural or Artificial Opening Endoscopic (ICD-10-PCS; CPT 43235; principal; 2022-10-06 07:30)
DX: K44.9 Diaphragmatic hernia without obstruction or gangrene (principal); K21.9 Gastro-esophageal reflux disease without esophagitis; E78.5 Hyperlipidemia, unspecified; E06.3 Autoimmune thyroiditis; E66.9 Obesity, unspecified; Z68.34 Body mass index [BMI] 34.0-34.9, adult
CPT/HCPCS: 43239; 87081; 88305; J2704; J7120

== ENCOUNTER 2022-12-28 07:02 | Outpatient (CLI) | payer OTHER, SELFPAY ==
--- NOTE | ~2022-12-28 | CT_ITS ---
CT Abdomen and Pelvis with contrast. History: Abdominal pain. Spiral CT of the abdomen and pelvis was performed after the administration of intravenous contrast. 1 00 cc of Omnipaque 350 was administered intravenously without complication. Dose reduction technique was used on this scan by utilizing automated exposure control and iterative reconstruction technique. The dose-length product (DLP) was 699.14 mGy-cm. COMPARISON: 05/22/2020 Findings: Scans through the lung bases demonstrate mild atelectatic change. The liver, spleen, pancreas, gallbladder, adrenals and kidneys are within normal limits. No evidence of aortic aneurysm. No lymphadenopathy is seen. There is no evidence of bowel obstruction. There is no evidence to suggest acute appendicitis or dive rticulitis. Images through the pelvis were performed. Urinary bladder unremarkable. No adnexal mass seen. No asci jackie is seen. Impression: No significant abnormalities seen. Reviewed, dictated and finalized at [facility]. INE MANAGERIAL SUPERVISOR Impression: No significant abnormalities seen.
[2022-12-28 07:49] LABS: Estimated Glomerular Filt Rate > 60
== END 2022-12-28 07:03 | disposition home or self-care (01) ==
LOC: CHSIMG 07:05
PROVIDERS: PCP Internal Medicine; Visit Provider Surgery
DX: R10.31 Right lower quadrant pain (principal)
CPT/HCPCS: 74177; Q9967

== ENCOUNTER 2023-03-03 07:17 | Outpatient (CLI) | payer OTHER, SELFPAY ==
[2023-03-03 07:32] LABS: Basophils Absolute Auto 0.06 K/mm3 (0.00-0.10); Basophils Percent Auto 0.9 % (0.0-1.0); Eosinophils Absolute Auto 0.12 K/mm3 (0.02-0.50); Eosinophils Percent Auto 1.8 % (1.0-6.0); Hematocrit 38.8 % (35.0-49.0); Hemoglobin 12.6 g/dL (12.0-15.0); Immature Granulocyte Absolute 0.02 K/mm3 (0.00-0.00); Immature Granulocyte Percent A 0.3 % (0.0-0.0); Lymphocytes Absolute Auto 1.59 K/mm3 (1.10-4.50); Lymphocytes Percent Auto 24.1 % (18.0-42.0); Mean Corpuscular HGB Conc 32.5 g/dL (32.0-36.0); Mean Corpuscular Hemoglobin 30.3 pg (27.0-31.0); Mean Corpuscular Volume 93.3 fL (78.0-102.0); Mean Platelet Volume 9.7 fl (9.2-11.8); Monocytes Absolute Auto 0.36 K/mm3 (0.10-0.90); Monocytes Percent Auto 5.5 % (2.0-11.0); Neutrophils Absolute Auto 4.4 K/mm3 (1.7-7.2); Neutrophils Percent Auto 67.4 % (50.0-70.0); Platelet Count Result 254 K/mm3 (150-420); Red Blood Count 4.16 M/mm3 (4.20-5.40); Red Cell Distribution Width 13.9 % (11.6-14.4); White Blood Count 6.6 K/mm3 (4.8-10.8)
[2023-03-03 07:38] LABS: Appearance Urine Clear (Clear); Bilirubin Urine Negative (Negative); Blood Urine Negative (Negative); Color Urine Light Yellow (Yellow); Glucose Urine UA Negative (Negative); Ketones Urine Negative (Negative); Leukocyte Esterase Ur Trace LEU/UL (Negative); Nitrate Urine Positive (Negative); Protein Urine Negative (Negative)
[2023-03-03 07:49] LABS: Add Urine Microscopic? YES
[2023-03-03 07:50] LABS: Bacteria Urine 2+ /hpf; RBC Urine 0-2 /hpf (0-2); Squamous Epithelial Cell Urine Few /hpf (Few); WBC Urine 16-20 /hpf (0-3)
[2023-03-03 08:08] LABS: Alanine Aminotransferase 27 U/L (14-59); Albumin Level 3.4 g/dL (3.4-5.0); Alkaline Phosphatase 88 U/L (46-116); Anion Gap 7 mmol/L (8-16); Aspartate Amino Transferase 19 U/L (15-37); Bilirubin,Total 0.4 mg/dL (0.00-1.00); Blood Urea Nitrogen 18 mg/dL (7-18); Calcium 8.6 mg/dL (8.5-10.1); Carbon Dioxide 29 mmol/L (21-32); Chloride 104 mmol/L (98-108); Cholesterol 218 mg/dL (0-200); Estimated Glomerular Filt Rate > 60; Glucose 108 mg/dL (70-99); HDL Direct 65 mg/dL (40-60); LDL Cholesterol Calculated 114 mg/dL (<130); Osmolality Calculated 292 mOsm/kg (285-295); Potassium 4.2 mmol/L (3.5-5.1); Sodium 140 mmol/L (136-145); Thyroid Stimulating Hormone 2.56 uIU/mL (0.36-3.74); Total Protein 6.9 g/dL (6.4-8.2); Triglycerides 195 mg/dL (0-150)
[2023-03-03 11:45] LABS: Hemoglobin A1C 5.5 % (<5.7)
== END 2023-03-03 07:18 | disposition home or self-care (01) ==
LOC: CHSLAB 07:18
PROVIDERS: PCP Internal Medicine; Visit Provider Internal Medicine
DX: E03.9 Hypothyroidism, unspecified (principal); E78.5 Hyperlipidemia, unspecified; R82.90 Unspecified abnormal findings in urine
CPT/HCPCS: 36415; 80053; 80061; 81001; 83036; 84443; 85025; 87077; 87086; 87088; 87186

== ENCOUNTER 2023-04-05 10:35 | Outpatient (CLI) | payer OTHER, SELFPAY ==
--- NOTE | ~2023-04-05 | CT_ITS ---
EXAMINATION: CT abdomen pelvis w con DATE: 04/05/2023 11:13 INDICATION: Right lower quadrant abdominal mass. TECHNIQUE: Computed tomography (CT) of the abdomen and pelvis was performed with 100 mL Omnipaque 350 intravenous contrast. Automated exposure control and iterative reconstruction technique were employe d. The dose-length product was 784.98 mGy-cm. COMPARISON: CT abdomen and pelvis 12/28/2022 FINDINGS: The visualized portions of the lung bases demonstrate mild atelectasis. No pleural effusion . The heart size is normal. No pericardial effusion. The liver, gallbladder, spleen, pancreas, adrena l glands, and right kidney are normal. There is cortical thinning of left kidney. There is a left ing uinal hernia containing fat. There is a right inguinal hernia containing trace ascites. There are no dilated loops of bowel. The appendix is normal. There is an infraumbilical ventral hernia containing fat. There is a right-sided spigelian hernia containing a wall of nonobstructed small bowel. There ar e no pathologically enlarged lymph nodes. There is no free intraperitoneal fluid. There is severe low er lumbar spondylosis. IMPRESSION: 1. Right-sided spigelian hernia containing a wall of nonobstructed small bowel. 2. Infraumbilical ventral hernia containing fat. 3. Left inguinal hernia containing fat. 4. Right inguinal hernia containing trace ascites. Reviewed, dictated and finalized at location A.
== END 2023-04-05 10:36 | disposition home or self-care (01) ==
PROVIDERS: PCP Internal Medicine; Visit Provider Internal Medicine Gastroenterology
DX: R19.03 Right lower quadrant abdominal swelling, mass and lump (principal); R10.31 Right lower quadrant pain; K43.9 Ventral hernia without obstruction or gangrene; K40.20 Bilateral inguinal hernia, without obstruction or gangrene, not specified as recurrent
CPT/HCPCS: 74177; Q9967

== ENCOUNTER 2023-04-13 02:05 | Inpatient (IN) | payer OTHER, SELFPAY ==
[2023-04-13] VITALS (14 sets, daily range): BP systolic 112–151; BP diastolic 59–74; PULSE 81–107; RESP 14–20; TEMP 35.5–37.2; O2SAT 92–100; BMI 34.0
--- NOTE | ~2023-04-13 | XR_ITS ---
Portable upright view of the abdomen Clinical history: NG tube placement Findings: NG tube is in satisfactory position. There are mildly air distended small bowel loops in th e upper abdomen. No free air. No abnormal mass lesion or calcification is seen. Osseous structures ar e intact. Impression: NG tube in satisfactory position. Possible small bowel obstruction. Reviewed, dictated and finalized at location . Impression: NG tube in satisfactory position. Possible small bowel obstruction.
--- NOTE | 2023-04-13 02:20 | PC.NURSE ---
Patient arrived on 3 Med-Surg at 02:05
--- NOTE | 2023-04-13 02:23 | PM.IMHP ---
H&P: HPI History of Present Illness Date/Time: 04/13/23 02:23 Chief Complaint: Abdominal pain Narrative: This is a 57-year-old female with past medical history significant for Demian's disease, GERD, inguinal hernia. Patient presents to outside hospital emergency room due to abdominal pain with nausea and vomiting of 1 day duration unable to eat anything or keep anything down not able to pass gas last bowel movement was the day before and he was her usual. Patient denies any weight loss hematemesis melena coffee-ground emesis or bright red blood per rectum. Pain is localized diffusely and periumbilical is crampy in nature rated at 5/10 intensity. Preliminary workup was significant for CT abdomen and pelvis was reported as: EXAMINATION: CT abdomen pelvis wo con DATE: 04/12/2023 22:40 INDICATION: Right-sided abdominal pain TECHNIQUE: Computed tomography (CT) of the abdomen and pelvis was performed without intravenous contrast. The dose-length product (DLP) was 710.41 mGy-cm. Automated exposure control and iterative reconstruction technique were employed. COMPARISON: 04/05/2023 FINDINGS: Minimal dependent atelectasis is present in the lung bases. The heart size is normal. A subareolar mass of the left breast has been previously characterized as a cyst. There is a small sliding hiatal hernia. The liver, spleen, pancreas, gallbladder, and adrenal glands are normal. There is cortical thinning of the left kidney. The right kidney is unremarkable. There is a right-sided spigelian hernia containing a short segment of small bowel. There are multiple fluid-filled loops of small bowel upstream from the hernia, some of which are dilated. The bowel distal to the hernia is relatively decompressed. There is an umbilical hernia containing fat. Also noted is an infraumbilical hernia containing fat. There is severe lumbar spondylosis. No pathologically enlarged abdominal or pelvic lymph nodes are identified. There is no free intraperitoneal gas. IMPRESSION: 1. Right-sided spigelian hernia containing a short segment of small bowel resulting in small bowel obstruction. Surgical consultation is recommended. 2. Left inguinal and infraumbilical hernias containing fat. Review of Systems Review of Systems: Abdominal pain, nausea, vomiting x1 day duration, constipation, unable to pass gas Constitutional: Constitutional: Denies chills, Denies fatigue, Denies fever(s), Denies malaise, Denies night sweats and Denies weakness Eyes: Eyes: Denies change in vision ENT: Denies dysphagia and Denies odynophagia Cardiovascular: Cardiovascular: Denies chest pain, Denies leg edema, Denies radiating jaw, neck or arm pain and Denies palpitations Respiratory: Respiratory: Denies cough and Denies dyspnea Gastrointestinal: Gastrointestinal: Reports abdominal pain, Denies melena, Denies hematochezia, Denies coffee ground emesis, Denies dyspepsia, Denies heartburn, Denies diarrhea, Reports nausea, Reports vomiting and Denies hematemesis Genitourinary: Genitourinary: Denies dysuria Musculoskeletal: Musculoskeletal: Denies back pain and Denies arthralgias Integumentary/Breasts: Skin/Breast: Denies rash Neurologic: Denies focal weakness and Denies Sensory deficit (Neuro) Psychiatric: Psychiatric: Reports no additional psychiatric complaints and Reports as per HPI Endocrine: Endocrine: Denies cold intolerance, Denies fatigue, Denies flushing, Denies heat intolerance, Denies polyphagia, Denies polydipsia and Denies palpitations Hematologic/Lymphatic: Hematologic/Lymphatic: Reports no additional hematologic/lymphatic complaints and Reports as per HPI Allergic/Immunologic: Allergic/Immunologic: Reports no additional allergic/immunologic complaints and Reports as per HPI PMFSH Past Medical History Medical History (Updated 04/13/23 @ 02:24 by Octavio Fonseca MD) GERD (gastroesophageal reflux disease) Demian's disease Hyperlipidemia Spigelian hernia Russell
[2023-04-13] MEDS: MORPHINE SULFATE (*CRX) 2 MG/ML INJ IV PUSH (02:51)
[2023-04-13] MEDS: LACTATED RINGERS 1,000 ML 100 ML IV CONT ×3 (02:54→20:22)
[2023-04-13 03:35] LABS: Appearance Urine Cloudy (Clear); Bacteria Urine 4+ /hpf; Bilirubin Urine Negative (Negative); Blood Urine Negative (Negative); Color Urine Yellow (Yellow); Glucose Urine UA Negative (Negative); Ketones Urine Negative (Negative); Leukocyte Esterase Ur Trace LEU/UL (Negative); Nitrate Urine Positive (Negative); Protein Urine Negative (Negative); RBC Urine 0-2 /hpf (0-2); Specific Grav Ur 1.012 (1.001-1.035); Squamous Epithelial Cell Urine None seen /hpf (Few); pH Urine 5.5 (5.0-9.0)
[2023-04-13 04:56] LABS: Add Urine Microscopic? YES
[2023-04-13] MEDS: ONDANSETRON INJ 4 MG/2 ML VIAL IV PUSH ×2 (05:53→16:14)
[2023-04-13 06:52] LABS: Basophils Absolute Auto 0.1 K/mm3 (0.0-0.1); Basophils Percent Auto 0.5 % (0.2-1.2); Eosinophils Percent Auto 0.2 % (0-4.4); Hematocrit 45.8 % (37.0-47.0); Hemoglobin 14.6 g/dL (12.0-15.0); Immature Granulocyte Absolute 0.04 K/mm3 (0.00-0.031); Immature Granulocyte Percent A 0.3 % (0-0.5); Lymphocytes Absolute Auto 0.67 K/mm3 (0.9-3.2); Lymphocytes Percent Auto 4.5 % (18.3-44.2); Mean Corpuscular HGB Conc 31.9 g/dl (32-36); Mean Corpuscular Hemoglobin 29.6 pg (26-34); Mean Corpuscular Volume 92.9 fl (80-100); Monocytes Absolute Auto 0.6 K/mm3 (0.1-0.6); Monocytes Percent Auto 4.1 % (2.6-8.5); Neutrophils Absolute Auto 13.3 K/mm3 (1.3-6.7); Neutrophils Percent Auto 90.4 % (45.5-73.1); Platelet Count Result 325 k/mm3 (150-375); Red Blood Count 4.93 M/mm3 (4.2-5.4); Red Cell Distribution Width 14.1 % (11.5-14.5); White Blood Count 14.7 K/mm3 (4.5-10.0)
[2023-04-13 07:00] LABS: Anion Gap 11 mmol/L (8-16); Blood Urea Nitrogen 14 mg/dL (7-17); Calcium 8.7 mg/dL (8.4-10.2); Carbon Dioxide 22 mmol/L (22-30); Chloride 104 mmol/L (98-107); Estimated CRCL calculation 84 ml/min; Estimated Glomerular Filt Rate > 60; Glucose 154 mg/dL (65-110); Sodium 137 mmol/L (137-145)
[2023-04-13 07:04] LABS: Lactic Acid Reflex 2.3 mmol/L (0.7-2.0)
[2023-04-13 07:27] LABS: INR 0.9; Prothrombin Time 12.4 Seconds (11.1-14.7)
[2023-04-13 07:55] LABS: Partial Thromboplastin Time 26.9 SECONDS (22.3-36.8)
[2023-04-13 09:41] LABS: Reflex Lactic Acid Yes or No Add Lactic
[2023-04-13 10:15] LABS: Lactic Acid 1.7 mmol/L (0.7-2.0)
[2023-04-13] MEDS: PROMETHAZINE HCL 25 MG/ML AMPUL 12.5 MG IV PUSH (10:20)
--- NOTE | 2023-04-13 10:47 | PM.CNGS ---
Assessment and Plan Assessment and plan (1) Small bowel obstruction: Code(s): K56.609 - Unspecified intestinal obstruction, unspecified as to partial versus complete obstruction Status: Acute Assessment and Plan: secondary to incarcerated spigelian hernia, largely reduced at bedside, patient is still quite uncomfortable and nauseous, continue NG decompression, will need urgent surgical repair (2) Incarcerated ventral hernia: Code(s): K43.6 - Other and unspecified ventral hernia with obstruction, without gangrene Status: Acute Assessment and Plan: see above, will need urgent surgical repair and reduction History of Present Illness Consult details Consult date: 04/13/23 Reason for consult: abdominal pain Requesting physician: Octavio Fonseca MD Narrative: The patient is a 57-year-old female presenting from [facility] complaining of severe right lower quadrant abdominal pain, nausea and vomiting. The patient reports a hard knot in her right lower quadrant at the site of her known known right spigelian hernia. The patient reports that yesterday the area became very swollen and hard and she was unable to push it back in. The patient reports that she also developed intractable nausea and vomiting. Workup at the outside hospital, including imaging, was significant for incarcerated small bowel within the right spigelian hernia causing small bowel obstruction. Of note, the patient was scheduled to have robotic repair of this hernia on May 01. Review of Systems Constitutional: Constitutional: Reports as per HPI, Reports anorexia, Denies chills, Denies fatigue, Denies increased appetite, Denies lethargy, Denies malaise, Reports poor appetite, Denies weakness, Denies weight gain and Denies weight loss Eyes: Eyes: Reports no additional eye complaints ENT: Reports system reviewed and no additional complaints, except as documented Cardiovascular: Cardiovascular: Reports no additional cardiovascular complaints Respiratory: Respiratory: Reports no additional respiratory complaints Gastrointestinal: Gastrointestinal: Reports as per HPI, Reports abdominal pain, Reports belching, Reports bloating, Reports GI cramping, Reports early satiety, Reports nausea, Reports vomiting and Denies hematemesis Genitourinary: Genitourinary: Reports no additional female genitourinary complaints Musculoskeletal: Musculoskeletal: Reports no additional musculoskeletal complaints Integumentary/Breasts: Skin/Breast: Reports system reviewed and no additional complaints, except as docu Neurologic: Reports system reviewed and no additional complaints, except as documented Psychiatric: Psychiatric: Reports no additional psychiatric complaints Endocrine: Endocrine: Reports no additional endocrine complaints Hematologic/Lymphatic: Hematologic/Lymphatic: Reports no additional hematologic/lymphatic complaints Allergic/Immunologic: Allergic/Immunologic: Reports no additional allergic/immunologic complaints PMF Past Medical History Medical History GERD (gastroesophageal reflux disease) Demian's disease Hyperlipidemia Spigelian hernia Surgical History Surgical History History of appendectomy As a child History of tonsillectomy and adenoidectomy As a child History of total abdominal hysterectomy vaginal approach Rectocele 10/2021 [facility] Social History Social History Smoking status: Never smoker Alcohol intake: current Drinks per week: 1 Alcohol use details: Rarely Substance use: never Substance use type: does not use Lack of Transportation: No Lack of Food: Never True Current Housing: I Have Housing Concerned About Future Housing: No Difficulty Paying Gas/Electric Bills: No Difficulty Paying for Meds: No Curren
[2023-04-13] MEDS: ENOXAPARIN 40 MG/0.4 ML SYRINGE SUB-Q (11:54)
[2023-04-13] MEDS: LACTATED RINGERS 1,000 ML 30 ML IV CONT ×2 (15:00→17:41)
--- NOTE | 2023-04-13 15:19 | PM.IMPN ---
Progress Note: A&P Assessment and Plan (1) Small bowel obstruction: Code(s): K56.609 - Unspecified intestinal obstruction, unspecified as to partial versus complete obstruction Status: Acute Assessment and Plan: Patient has a known spigelian hernia that has been bothering her for past few months. She presents with abdominal pain and found to have a right-sided spigelian hernia containing a short segment of small bowel resulting small-bowel obstruction. The hernia was able to be reduced at bedside. Lactic acid level normal now but WBC higher. Patient was seen by General surgery and recommended open incarcerated right spigelian hernia repair today. NG tube is been placed and is to low wall intermittent suction. Appreciate General surgery input. Check EKG. (2) Incarcerated ventral hernia: Code(s): K43.6 - Other and unspecified ventral hernia with obstruction, without gangrene Status: Acute Assessment and Plan: Patient with incarcerated spigelian hernia. As above. (3) Spigelian hernia: Code(s): K43.9 - Ventral hernia without obstruction or gangrene Status: Acute Assessment and Plan: As above. (4) GERD (gastroesophageal reflux disease): Code(s): K21.9 - Gastro-esophageal reflux disease without esophagitis Status: Acute Assessment and Plan: Stable. Resume PPI when able. 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 Resume levothyroxine when able. Plan ?UTI - UCx pending. She is getting cafazolin siva-operatively. Follow-up on cultures. Subjective Date/time seen: 04/13/23 15:19 Interval history: 57yo female with GERD, spigelian hernia and thyroid disease here for abdominal pain and found to have SBO from the right sided spigelian hernia. No chest pain. No SOB. She walks but does not do any significant exertional activities. She does carry her groceries in from the car. She denies CP, CP with exertion or PEREZ with activity. Her last stress test was 10yrs ago that was negative. No n/v. Having spasms of abdominal pain. Exam Narrative: AF 99.0 148/65 107 16 100% ra Gen - NARD HEENT - NGT secured with yellowish fluid in tubing Chest - CTA bilaterally, nml RR CV - RRR S1/S2 Abd - Soft, ND, hypoactive BS, tender nodule right flank Ext - No pedal edema Psych - depressed mood Skin - Warm and dry Objective Data Vital Signs Vital Signs: Vital Signs - 24 hr 04/13/23 02:26 04/13/23 05:39 04/13/23 08:00 Temperature 98.0 F Pulse Rate 81 Respiratory Rate 14 Blood Pressure 128/74 Pulse Oximetry 94 Oxygen Delivery Room Air Room Air 04/13/23 14:00 04/13/23 14:45 Temperature 96 F L 99.0 F Pulse Rate 107 H 107 H Respiratory Rate 14 16 Blood Pressure 151/59 H 148/65 H Pulse Oximetry 92 100 Oxygen Delivery Room Air Intake/Output Intake/Output: Intake & Output 04/10/23 04/11/23 04/12/23 04/13/23 23:59 23:59 23:59 23:59 Intake Total 1000 Balance 1000 Meds/Results Medications: Active Medications Generic Name Dose Route Start Last Admin Trade Name Freq PRN Reason Stop Dose Admin Enoxaparin Sodium 40 mg 04/13/23 09:00 04/13/23 11:54 Enoxaparin 40 Mg/0.4 Ml Syringe SUB-Q 40 mg DAILY ROLANDO Administration Lactated Ringer's 1,000 mls @ 100 mls/hr 04/13/23 02:25 04/13/23 11:59 Lr - Lactated Ringers Iv IV CONT 100 mls/hr .Q10H ROLANDO Administration Lactated Ringer's 1,000 mls @ 30 mls/hr 04/13/23 15:05 04/13/23 15:00 Lr - Lactated Ringers Iv IV CONT 30 mls/hr .Q24H ROLANDO Administration Morphine Sulfate 2 mg 04/13/23 02:24 04/13/23 02:51 Morphine Sulfate (*Crx) 2 Mg/Ml Inj IV PUSH 2 mg Q4H PRN Administration Pain Rated 7-10 Ondansetron HCl 4 mg 04/13/23 02:24 04/13/23 05:53 Ondansetron Inj 4 Mg/2 Ml Vial IV PUSH 4 mg Q6H PRN A
--- NOTE | 2023-04-13 15:39 | ECG_ITS ---
Measurements Intervals [place] Rate: 103 P: 49 LA: 181 QRS: -22 QRSD: 104 T: 64 QT: 345 QTc: 453 Interpretive Statements SINUS TACHYCARDIA BORDERLINE LEFT AXIS DEVIATION [QRS AXIS < -20] NONSPECIFIC T-WAVE ABNORMALITY ABNORMAL RHYTHM ECG NO PREVIOUS ECG AVAILABLE FOR COMPARISON Electronically Signed On 04-13-2023 16:31:09 CDT by Yang [email or web address] M.D.
--- NOTE | 2023-04-13 16:04 | WPDHPUPDATE1 ---
History and Physical Update Update Date/Time: 04/13/23 16:04 History and Physical has been reviewed, including an updated exam of the patient. There are NO changes in the patient's condition. Risks, benefits, and alternatives have been discussed and questions answered. Patient agrees to proceed with procedure.
--- NOTE | 2023-04-13 16:16 | WPDANESEPPF ---
Anes - Initial Pre Proc Eval Procedure: Operation Date: 04/13/23 16:30 Proposed Procedures p Open Right Incarcerated Spigalean Hernia Repair; Possible Bowel Resection - William Palomo DO Date/Time: 04/13/23 16:16 Surgeon: Octavio Fonseca MD Pre Op Diagnosis: Small Bowel Obstruction Patient Data Age: 57 Gender: F Height: 1.65 m Weight: 92.6 kg Last Vital Signs Temp 37.2 C 04/13/23 14:45 Pulse 107 H 04/13/23 14:45 Resp 16 04/13/23 14:45 BP 148/65 H 04/13/23 14:45 Pulse Ox 100 04/13/23 14:45 O2 Del Method Room Air 04/13/23 14:45 Allergies Allergy/AdvReac Type Severity Reaction Status Date / Time Sulfa (Sulfonamide Allergy Unknown Rash Verified 04/13/23 15:01 Antibiotics) SULFAMERAZINE (Generic Allergy Y Uncoded 04/13/23 15:01 Allergy) Home Medications Medication Instructions Recorded Confirmed Type citalopram 20 mg tablet 20 mg PO DAILY 02/01/21 04/13/23 History ergocalciferol (vitamin D2) 1,250 1,250 mcg PO WEEKLY 02/01/21 04/13/23 History mcg (50,000 unit) capsule (Vitamin D2) estradiol 1 mg tablet 1 mg PO DAILY 02/01/21 04/13/23 History levothyroxine 100 mcg capsule 100 mcg PO DAILY 02/01/21 04/13/23 History vitamin B complex (B 1 tablet PO DAILY 02/01/21 04/13/23 History Complex-Vitamin B12 tablet) calcium polycarbophil 625 mg 1,250 mg PO DAILY 08/26/22 04/13/23 History tablet (FiberCon) cyclobenzaprine 10 mg tablet 10 mg PO TID PRN muscle spasm #30 04/05/23 04/13/23 Rx tabs pantoprazole 40 mg tablet,delayed 40 mg PO DAILY 04/05/23 04/13/23 History release spironolactone 25 mg tablet 25 mg PO DAILY 04/05/23 04/13/23 History Laboratory Tests 04/13/23 04/13/23 04/13/23 03:23 06: 09:56 WBC 14.7 H K/mm3 (4.5-10.0) RBC 4.93 M/mm3 (4.2-5.4) Hgb 14.6 g/dL (12.0-15.0) Hct 45.8 % (37.0-47.0) MCV 92.9 fl (80-100) MCH 29.6 pg (26-34) MCHC 31.9 L g/dl (32-36) RDW 14.1 % (11.5-14.5) Plt Count 325 k/mm3 (150-375) MPV 10.0 fl (7.4-10.4) Immature Gran % (Auto) 0.3 % (0-0.5) Neut % (Auto) 90.4 H % (45.5-73.1) Lymph % (Auto) 4.5 L % (18.3-44.2) [place] % (Auto) 4.1 % (2.6-8.5) Eos % (Auto) 0.2 % (0-4.4) Baso % (Auto) 0.5 % (0.2-1.2) Lymph # (Auto) 0.67 L K/mm3 (0.9-3.2) [place] # (Auto) 0.6 K/mm3 (0.1-0.6) Eos # (Auto) 0.0 K/mm3 (0-0.3) Baso # (Auto) 0.1 K/mm3 (0.0-0.1) Abs Immat Gran (auto) 0.04 H K/mm3 (0.00-0.031) Absolute Neuts (auto) 13.3 H K/mm3 (1.3-6.7) Absolute Nucleated RBC 0.0 K/mm3 (0.0-0.012) Nucleated RBC % 0.0 % (0.0-0.2) PT 12.4 Seconds (11.1-14.7) INR 0.9 APTT 26.9 SECONDS (22.3-36.8) Sodium 137 mmol/L (137-145) Potassium 4.0 mmol/L (3.4-5.0) Chloride 104 mmol/L (98-107) Carbon Dioxide 22 mmol/L (22-30) Anion Gap 11 mmol/L (8-16) BUN 14 mg/dL (7-17) Creatinine 0.70 mg/dL (0.7-1.0) Estim Creat Clear Calc 84 ml/min Estimated GFR > 60 (59 - ) Glucose 154 H mg/dL (65-110) Lactic Acid 2.3 H mmol/L 1.7 mmol/L (0.7-2.0) (0.7-2.0) Calcium 8.7 mg/dL (8.4-10.2) Urine Color Yellow (Yellow) Urine Appearance Cloudy H (Clear) Urine pH 5.5 (5.0-9.0) Ur Specific [place] 1.012 (1.001-1.035) Urine Protein Negative mg/dL (Negative) Urine Glucose (UA) Negative mg/dL (Negative) Urine Ketones Negative mg/dL (Negative) Ur Blood (Man) Negative (Negative) Urine Nitrate Positive H (Negative) Urine Bilirubin Negative (Negative) Urine Urobilinogen 1.0 mg/dL (<2.0)
[2023-04-13] MEDS: ceFAZolin 2 GM/D5W 50 ML 2 GM/50 ML BAG IVPB (16:41)
[2023-04-13] MEDS: BUPIVACAINE/EPINEPHRINE 0.5% 50 ML VIAL 20 ML INFILTRATE (17:27)
--- NOTE | 2023-04-13 17:34 | W.PM.PROC2 ---
Procedure Note - Detailed Date of Procedure 04/13/23 Pre-op Diagnosis Small Bowel Obstruction, Incarcerated right Spigelian hernia Post-op Diagnosis Same Procedure Performed Open 3 cm incarcerated right Spigelian hernia repair with mesh Surgeon William Palomo, DO Anesthesia General and Local (0.5% bupivacaine with epinephrine) Indications This is a 57-year-old woman who presented to the emergency department last night with right lower quadrant abdominal pain, nausea, and vomiting. CT showed evidence of a right spigelian hernia incarcerated with small bowel. NG tube was placed and she was admitted to the hospital for further management. Dr. Mccurdy evaluated her this morning and was able to partially reduce the hernia. She was still having some pain in still did have a small palpable lump remaining. She was not showing any sign of bowel function returned. Discussions were made with the patient about treatment options and decision was made to proceed with open incarcerated right spigelian hernia repair, possible mesh, possible bowel resection. Findings Open incarcerated right spigelian hernia repair was performed. The patient was found to have a right lower quadrant spigelian hernia containing a loop of small bowel. Bowel had some erythema and induration, but there was no evidence of necrosis or perforation. There was some ascites within the hernia sac and the hernia sac itself appeared slightly necrotic. Hernia sac was excised and sent to the lab for pathology. The bowel was able to be reduced in all appeared healthy and viable. The hernia defect measured approximately 3 cm. A 6.[address] hernia patch was placed within the abdominal cavity. This was secured to the abdominal wall using 0 Ethibond [id number] sutures. No other significant abnormalities were noted. Description of Procedure Procedure as well as risks, benefits, and alternatives were discussed with the patient. Consent was obtained and placed in chart prior to procedure. Patient was brought back to surgical suite. She was placed supine on operating table. Time-out was done to confirm patient and procedure. She was then intubated by the anesthesia department. Her abdomen was then prepped and draped in sterile fashion using chlorhexidine prep. A 6 cm transverse incision was made in the right lower quadrant using a 10 blade scalpel. Electrocautery was used for hemostasis and for dissection through Angelo's fascia. The external oblique aponeurosis was identified and the hernia was palpable just deep to this. The external oblique aponeurosis was incised using electrocautery. The hernia sac was then identified. The hernia sac was then opened using Metzenbaum scissors. The bowel within the hernia defect was inspected and appeared healthy and viable. Bowel was reduced carefully with manual pressure. The hernia sac was then excised with electrocautery. This was sent to the lab for pathology. The hernia defect was then measured and this measured 3 cm. The decision was made to place a 6.[address] hernia patch to repair this. The mesh was placed within the abdominal cavity and was brought up centered on the hernia defect. The mesh appeared to be centered in proper position. Mesh was then secured to the abdominal wall with the fascial closure using 0 Ethibond [id number] sutures. The [id number] sutures were placed within the internal oblique and transversus abdominis tissue. The closure was inspected and appeared secure. The external oblique aponeurosis was then closed over this using 0 Vicryl running suture. The repair was inspected 1 final time and appeared secured. 0.5% bupivacaine with epinephrine was infiltrated locally around the fascia and subcutaneous space. Angelo's fascia was then reapproximated using 3-0 Vicryl simple interrupted sutures. The skin was then approximated using 4-0 Monocryl running subcuticular suture. Exofin glue was then applied on
[2023-04-13] MEDS: ACETAMINOPHEN 500 MG TABLET 1000 MG PO (20:22)
[2023-04-14] MEDS: ACETAMINOPHEN 500 MG TABLET 1000 MG PO ×5 (00:27→23:14)
[2023-04-14] MEDS: ceFAZolin 2 GM/D5W 50 ML 2 GM/50 ML BAG IVPB ×3 (00:28→17:43)
[2023-04-14 00:44] VITALS: BP 133/57; PULSE 85; RESP 16; TEMP 36.6; O2SAT 95
[2023-04-14 05:37] VITALS: BP 123/52; PULSE 72; RESP 16; TEMP 36.8; O2SAT 98
[2023-04-14 05:57] LABS: Basophils Absolute Auto 0.1 K/mm3 (0.0-0.1); Eosinophils Absolute Auto 0.1 K/mm3 (0-0.3); Eosinophils Percent Auto 0.8 % (0-4.4); Hematocrit 37.4 % (37.0-47.0); Hemoglobin 12.1 g/dL (12.0-15.0); Immature Granulocyte Absolute 0.01 K/mm3 (0.00-0.031); Immature Granulocyte Percent A 0.1 % (0-0.5); Lymphocytes Percent Auto 14.2 % (18.3-44.2); Mean Corpuscular HGB Conc 32.4 g/dl (32-36); Mean Corpuscular Hemoglobin 30.3 pg (26-34); Mean Corpuscular Volume 93.7 fl (80-100); Mean Platelet Volume 9.7 fl (7.4-10.4); Monocytes Absolute Auto 0.4 K/mm3 (0.1-0.6); Monocytes Percent Auto 6.1 % (2.6-8.5); Neutrophils Absolute Auto 5.5 K/mm3 (1.3-6.7); Neutrophils Percent Auto 77.8 % (45.5-73.1); Platelet Count Result 251 k/mm3 (150-375); Red Blood Count 3.99 M/mm3 (4.2-5.4); Red Cell Distribution Width 14.6 % (11.5-14.5); White Blood Count 7.1 K/mm3 (4.5-10.0)
[2023-04-14 06:06] LABS: Alanine Aminotransferase 16 U/L (6-35); Albumin Level 3.1 g/dL (3.5-5.1); Alkaline Phosphatase 63 U/L (38-126); Anion Gap 4 mmol/L (8-16); Aspartate Amino Transferase 22 U/L (14-36); Bilirubin,Total 0.7 mg/dL (0.2-1.3); Blood Urea Nitrogen 12 mg/dL (7-17); Calcium 7.6 mg/dL (8.4-10.2); Carbon Dioxide 28 mmol/L (22-30); Chloride 103 mmol/L (98-107); Estimated CRCL calculation 96 ml/min; Estimated Glomerular Filt Rate > 60; Glucose 121 mg/dL (65-110); Potassium 3.7 mmol/L (3.4-5.0); Sodium 135 mmol/L (137-145)
[2023-04-14] MEDS: ENOXAPARIN 40 MG/0.4 ML SYRINGE SUB-Q (09:12)
[2023-04-14 09:25] VITALS: O2SAT 94
--- NOTE | 2023-04-14 09:40 | WPDANESPN ---
Anes - Prog Note Post-Op Date/Time: 04/14/23 09:40 Cardiovascular status: normal Respiratory status: normal Airway patency: baseline Mental status: baseline Post-Op hydration status: normal Vital Signs: Last Vital Signs Temp 36.8 C 04/14/23 05:37 Pulse 72 04/14/23 05:37 Resp 16 04/14/23 05:37 BP 123/52 L 04/14/23 05:37 Pulse Ox 94 04/14/23 09:25 O2 Del Method Room Air 04/14/23 09:25 O2 Flow Rate 2 04/13/23 20:00 Pain Score (VAS): 0 I/O: Intake & Output 04/13/23 04/14/23 04/14/23 23:59 07:59 15:59 Intake Total 50 50 Balance 50 50 Laboratory Tests 04/14/23 05:45 04/14/23 05:45 04/13/23 04/14/23 09:56 05:45 WBC 7.1 RBC 3.99 L Hgb 12.1 Hct 37.4 MCV 93.7 MCH 30.3 MCHC 32.4 RDW 14.6 H Plt Count 251 MPV 9.7 Immature Gran % (Auto) 0.1 Neut % (Auto) 77.8 H Lymph % (Auto) 14.2 L [facility] % (Auto) 6.1 Eos % (Auto) 0.8 Baso % (Auto) 1.0 Lymph # (Auto) 1.00 [facility] # (Auto) 0.4 Eos # (Auto) 0.1 Baso # (Auto) 0.1 Abs Immat Gran (auto) 0.01 Absolute Neuts (auto) 5.5 Absolute Nucleated RBC 0.0 Nucleated RBC % 0.0 Sodium 135 L Potassium 3.7 Chloride 103 Carbon Dioxide 28 Anion Gap 4 L BUN 12 Creatinine 0.60 L Estim Creat Clear Calc 96 Estimated GFR > 60 Glucose 121 H Lactic Acid 1.7 Calcium 7.6 L Total Bilirubin 0.7 AST 22 ALT 16 Alkaline Phosphatase 63 Total Protein 6.0 L Albumin 3.1 L Post-procedural complaints: none Patient Feedback: Patient satisfied with anesthetic care.
--- NOTE | 2023-04-14 10:42 | PM.PNGS ---
Progress Note: A&P Assessment and Plan (1) Incarcerated ventral hernia: Code(s): K43.6 - Other and unspecified ventral hernia with obstruction, without gangrene Status: Acute Assessment and Plan: Doing well on POD#1. Continue clear liquids today. Increase activity. Will add MiraLax to help with return of bowel function and constipation. Possibly home in 1-2 days if improving. (2) Complete small bowel obstruction: Code(s): K56.601 - Complete intestinal obstruction, unspecified as to cause Status: Resolved Subjective Subjective Date/Time Seen: 04/14/23 10:42 Interval history: Feeling much better today. Pain controlled. No flatus or BM yet. No bloating or nausea with clear liquids. Exam GI: Inspection: incision (intact with glue) GI Palp: Yes Soft to palpation, Yes Tenderness to palpation present (GI) (incisional) and No Guarding due to palpation present (GI) Auscultation: Hypoactive bowel sounds present Objective Data Vital Signs Vital Signs: Vital Signs - 24 hr 04/13/23 14:00 04/13/23 14:45 04/13/23 17:41 Temperature 35.5 C L 37.2 C 36.2 C L Pulse Rate 107 H 107 H 102 H Respiratory Rate 14 16 20 Blood Pressure 151/59 H 148/65 H 134/67 Pulse Oximetry 92 100 98 Oxygen Delivery Room Air Simple Face Mask Oxygen Flow Rate 8 04/13/23 17:50 04/13/23 18:05 04/13/23 18:10 Temperature Pulse Rate 97 98 100 Respiratory Rate 20 20 20 Blood Pressure 126/68 126/60 112/59 L Pulse Oximetry 98 94 94 Oxygen Delivery Simple Face Mask Room Air Room Air Oxygen Flow Rate 8 04/13/23 18:20 04/13/23 18:30 04/13/23 18:45 Temperature 36.2 C L 35.9 C L Pulse Rate 96 90 91 Respiratory Rate 20 20 16 Blood Pressure 124/63 127/69 136/65 Pulse Oximetry 93 96 95 Oxygen Delivery Room Air Nasal Cannula Oxygen Flow Rate 2 04/13/23 19:00 04/13/23 19:18 04/13/23 20:35 Temperature 35.8 C L 36.4 C 36.6 C Pulse Rate 93 89 88 Respiratory Rate 16 16 16 Blood Pressure 143/59 H 137/65 124/60 Pulse Oximetry 95 96 98 Oxygen Delivery Oxygen Flow Rate 04/13/23 20:00 04/14/23 00:44 04/14/23 05:37 Temperature 36.6 C 36.8 C Pulse Rate 85 72 Respiratory Rate 16 16 Blood Pressure 133/57 L 123/52 L Pulse Oximetry 98 95 98 Oxygen Delivery Nasal Cannula Oxygen Flow Rate 2 04/14/23 09:25 04/14/23 08:00 Temperature Pulse Rate Respiratory Rate Blood Pressure Pulse Oximetry 94 Oxygen Delivery Room Air Room Air Oxygen Flow Rate Intake/Output Intake/Output: Intake & Output 04/11/23 04/12/23 04/13/23 04/14/23 23:59 23:59 23:59 23:59 Intake Total 1050 50 Output Total 500 Balance 550 50 Meds/Results Medications: Active Medications Generic Name Dose Route Start Last Admin Trade Name Freq PRN Reason Stop Dose Admin Acetaminophen 1,000 mg 04/13/23 18:00 04/14/23 05:06 Acetaminophen 500 Mg Tablet PO 1,000 mg Q6H ROLANDO Administration Enoxaparin Sodium 40 mg 04/13/23 09:00 04/14/23 09:12 Enoxaparin 40 Mg/0.4 Ml Syringe SUB-Q 40 mg DAILY ROLANDO Administration Cefazolin Sodium 2 gm in 50 mls @ 100 mls/hr 04/14/23 00:00 04/14/23 09:12 Ancef 2 Gm/D5w 50 Ml IVPB 04/14/23 16:29 100 mls/hr Q8H ROLANDO Administration Morphine Sulfate 2 mg 04/13/23 18:33 Morphine Sulfate (*Crx) 2 Mg/Ml Inj IV PUSH Q2H PRN Pain Rated 4-6 Morphine Sulfate 4 mg 04/13/23 18:33 Morphine Sulfate (*Crx) 4 Mg/Ml Inj IV PUSH Q2H PRN Pain Rated 7-10 Ondansetron HCl 4 mg 04/13/23 02:24 04/13/23 16:14 Ondansetron Inj 4 Mg/2 Ml Vial IV PUSH 4 mg Q6H PRN Administration Nausea And Vomiting Polyethylene Glycol 17 gm 04/14/23 10:45 Polyethylene Glycol 3350 17 Gm Powd.Pack PO QAM [facility] Radiology Results: ITS Impressions Abdomen X-Ray 04/13/23 06:07 Impression: NG tube in satisfactory position. Possible small bowel obstruction. Labs Labs: Laboratory Results - last 24 hr
[2023-04-14] MEDS: polyethylene glycoL 3350 17 GM POWD.PACK PO (11:56)
--- NOTE | 2023-04-14 13:21 | PM.IMPN ---
Progress Note: A&P Assessment and Plan (1) Small bowel obstruction: Code(s): K56.609 - Unspecified intestinal obstruction, unspecified as to partial versus complete obstruction Status: Inactive Assessment and Plan: Patient has a known spigelian hernia that has been bothering her for past few months. She presented with abdominal pain and found to have a right-sided spigelian hernia containing a short segment of small bowel resulting small-bowel obstruction. The hernia was able to be reduced at bedside. Lactic acid level elevated at 2.3 but normalized. WBC peaked at 14K but normal now. Patient was seen by General surgery who recommended surgical intervention. She underwent an open incarcerated right spigelian hernia repair with mesh on 04/13. Patient has toelrated to the procedure well so far. Encouraged IS use. Encouraged her to be up walking. Appreciate General surgery input. (2) Incarcerated ventral hernia: Code(s): K43.6 - Other and unspecified ventral hernia with obstruction, without gangrene Status: Acute Assessment and Plan: Patient with incarcerated spigelian hernia. As above. (3) Spigelian hernia: Code(s): K43.9 - Ventral hernia without obstruction or gangrene Status: Acute Assessment and Plan: As above. (4) GERD (gastroesophageal reflux disease): Code(s): K21.9 - Gastro-esophageal reflux disease without esophagitis Status: Acute Assessment and Plan: Stable. Resume PPI. 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 Resume levothyroxine Plan ?UTI - UCx still pending. She received cefazolin siva-operatively. Follow-up on cultures. Subjective Date/time seen: 04/14/23 13:21 Interval history: 57yo female with GERD, spigelian hernia and thyroid disease here for abdominal pain and found to have SBO from the right sided spigelian hernia. Patient feels well today. Abdominal pain is improved but still feels sore. No chest pain or shortness of breath. No nausea or vomiting. She is passing flatus. No bowel movements. No dysuria or hematuria. She does have a cough related to postnasal drainage that was present prior to admission. She had a cough about a week ago but that had improved. Exam Narrative: AF 98.3 123/52 72 16 94% ra Gen - NARD Chest -mild bibasilar inspiratory crackles. CV - RRR S1/S2 Abd -soft. Positive bowel sounds. Right lower quadrant incision is clean, dry and intact Ext - No pedal edema Psych -normal mood and affect. Skin - Warm and dry Objective Data Vital Signs Vital Signs: Vital Signs - 24 hr 04/13/23 14:00 04/13/23 14:45 04/13/23 17:41 Temperature 96 F L 99.0 F 97.1 F L Pulse Rate 107 H 107 H 102 H Respiratory Rate 14 16 20 Blood Pressure 151/59 H 148/65 H 134/67 Pulse Oximetry 92 100 98 Oxygen Delivery Room Air Simple Face Mask Oxygen Flow Rate 8 04/13/23 17:50 04/13/23 18:05 04/13/23 18:10 Temperature Pulse Rate 97 98 100 Respiratory Rate 20 20 20 Blood Pressure 126/68 126/60 112/59 L Pulse Oximetry 98 94 94 Oxygen Delivery Simple Face Mask Room Air Room Air Oxygen Flow Rate 8 04/13/23 18:20 04/13/23 18:30 04/13/23 18:45 Temperature 97.1 F L 96.6 F L Pulse Rate 96 90 91 Respiratory Rate 20 20 16 Blood Pressure 124/63 127/69 136/65 Pulse Oximetry 93 96 95 Oxygen Delivery Room Air Nasal Cannula Oxygen Flow Rate 2 04/13/23 19:00 04/13/23 19:18 04/13/23 20:35 Temperature 96.5 F L 97.6 F 97.8 F Pulse Rate 93 89 88 Respiratory Rate 16 16 16 Blood Pressure 143/59 H 137/65 124/60 Pulse Oximetry 95 96 98 Oxygen Delivery Oxygen Flow Rate 04/13/23 20:00 04/14/23 00:44 04/14/23 05:37 Temperature 98 F 98.3 F Pulse Rate 85 72 Respiratory Rate 16 16 Blood Pressure 133/57 L 123/52 L Pulse Oximetry 98 95 98 Oxygen Delivery Nasal
[2023-04-14 14:00] VITALS: BP 136/68; PULSE 79; RESP 18; TEMP 36.4; O2SAT 95
[2023-04-14 20:18] VITALS: BP 134/64; PULSE 74; RESP 20; TEMP 36.4; O2SAT 93
--- NOTE | 2023-04-14 21:38 | P.PNCROSS_ITS ---
Event Note Event Note Event Note: Call received from the patient's nurse. Urine culture growing Gram-negative ba cilli. Previous cultures reviewed and showed E coli sensitive to Rocephin. Continue Rocephin 1 g Q 24 hours pending sensitivities.
[2023-04-15] MEDS: ACETAMINOPHEN 500 MG TABLET 1000 MG PO ×2 (05:34→12:35)
[2023-04-15] MEDS: LEVOTHYROXINE SODIUM 100 MCG TABLET PO (05:34)
[2023-04-15 06:19] LABS: Hematocrit 37.4 % (37.0-47.0); Hemoglobin 11.7 g/dL (12.0-15.0); Mean Corpuscular HGB Conc 31.3 g/dl (32-36); Mean Corpuscular Hemoglobin 29.5 pg (26-34); Mean Corpuscular Volume 94.4 fl (80-100); Mean Platelet Volume 9.7 fl (7.4-10.4); Platelet Count Result 243 k/mm3 (150-375); Red Blood Count 3.96 M/mm3 (4.2-5.4); Red Cell Distribution Width 14.4 % (11.5-14.5); White Blood Count 6.9 K/mm3 (4.5-10.0)
[2023-04-15 06:31] LABS: Anion Gap 5 mmol/L (8-16); Blood Urea Nitrogen 9 mg/dL (7-17); Calcium 7.7 mg/dL (8.4-10.2); Carbon Dioxide 29 mmol/L (22-30); Chloride 104 mmol/L (98-107); Estimated CRCL calculation 96 ml/min; Estimated Glomerular Filt Rate > 60; Glucose 107 mg/dL (65-110); Potassium 3.8 mmol/L (3.4-5.0); Sodium 138 mmol/L (137-145)
[2023-04-15 06:55] VITALS: BP 114/84; PULSE 70; RESP 18; TEMP 36.4; O2SAT 94
[2023-04-15] MEDS: ENOXAPARIN 40 MG/0.4 ML SYRINGE SUB-Q (09:03)
[2023-04-15] MEDS: polyethylene glycoL 3350 17 GM POWD.PACK PO (09:03)
[2023-04-15] MEDS: PANTOPRAZOLE 40 MG TABLET PO (09:03)
[2023-04-15 10:13] VITALS: O2SAT 95
--- NOTE | 2023-04-15 11:12 | PM.PNGS ---
Progress Note: A&P Assessment and Plan (1) Incarcerated ventral hernia: Code(s): K43.6 - Other and unspecified ventral hernia with obstruction, without gangrene Status: Acute Assessment and Plan: Doing well on POD#2. Advance to regular diet for lunch today. OK to discharge this afternoon if tolerating diet. Discharge instructions discussed with patient, follow up in 2 weeks (2) Complete small bowel obstruction: Code(s): K56.601 - Complete intestinal obstruction, unspecified as to cause Status: Resolved (3) UTI (urinary tract infection): Code(s): N39.0 - Urinary tract infection, site not specified Status: Acute Assessment and Plan: Antibiotics per Hospitalist Subjective Subjective Date/Time Seen: 04/15/23 11:12 Interval history: Tolerating diet and bowels moving. Pain controlled with just Tylenol. Ambulating without much difficulty. Exam GI: Inspection: non-distended and incision (intact with glue) GI Palp: Yes Soft to palpation and Yes Tenderness to palpation present (GI) (incisional) Auscultation: normal bowel sounds Objective Data Vital Signs Vital Signs: Vital Signs - 24 hr 04/14/23 14:00 04/14/23 20:00 04/14/23 20:18 Temperature 36.4 C L 36.4 C Pulse Rate 79 74 Respiratory Rate 18 20 Blood Pressure 136/68 134/64 Pulse Oximetry 95 93 Oxygen Delivery Room Air 04/15/23 06:55 04/15/23 10:13 04/15/23 08:00 Temperature 36.4 C Pulse Rate 70 Respiratory Rate 18 Blood Pressure 114/84 Pulse Oximetry 94 95 Oxygen Delivery Room Air Room Air Intake/Output Intake/Output: Intake & Output 04/12/23 04/13/23 04/14/23 04/15/23 23:59 23:59 23:59 23:59 Intake Total 1050 1160 500 Output Total 500 Balance 550 1160 500 Meds/Results Medications: Active Medications Generic Name Dose Route Start Last Admin Trade Name Freq PRN Reason Stop Dose Admin Acetaminophen 1,000 mg 04/13/23 18:00 04/15/23 05:34 Acetaminophen 500 Mg Tablet PO 1,000 mg Q6H ROLANDO Administration Hydrocodone Bitart/Acetaminophen 1 tab 04/15/23 08:46 Hydrocodone/Acetaminophen (*Crx) 5-325 Mg Tablet PO Q4H PRN Pain Rated 4-6 Hydrocodone Bitart/Acetaminophen 1 tab 04/15/23 08:46 Hydrocodone/Acetaminophen (*Crx) 10-325 Mg Tablet PO Q4H PRN Pain Rated 7-10 Enoxaparin Sodium 40 mg 04/13/23 09:00 04/15/23 09:03 Enoxaparin 40 Mg/0.4 Ml Syringe SUB-Q 40 mg DAILY ROLANDO Administration Ceftriaxone Sodium 1 gm in 50 mls @ 100 mls/hr 04/14/23 22:00 04/14/23 22:00 Rocephin 1 Gm/Ns 50 Ml IVPB 100 mls/hr Q24H ROLANDO Administration Levothyroxine Sodium 100 mcg 04/15/23 06:30 04/15/23 05:34 Levothyroxine Sodium 100 Mcg Tablet PO 100 mcg DAILY@0630 ROLANDO Administration Morphine Sulfate 2 mg 04/13/23 18:33 Morphine Sulfate (*Crx) 2 Mg/Ml Inj IV PUSH Q2H PRN Pain Rated 4-6 Morphine Sulfate 4 mg 04/13/23 18:33 Morphine Sulfate (*Crx) 4 Mg/Ml Inj IV PUSH Q2H PRN Pain Rated 7-10 Ondansetron HCl 4 mg 04/13/23 02:24 04/13/23 16:14 Ondansetron Inj 4 Mg/2 Ml Vial IV PUSH 4 mg Q6H PRN Administration Nausea And Vomiting Pantoprazole Sodium 40 mg 04/15/23 09:00 04/15/23 09:03 Pantoprazole 40 Mg Tablet PO 40 mg DAILY ROLANDO Administration Polyethylene Glycol 17 gm 04/14/23 10:45 04/15/23 09:03 Polyethylene Glycol 3350 17 Gm Powd.Pack PO 17 gm QAM ROLANDO Administration Sodium Chloride 1 spray 04/14/23 14:16 Saline 0.65% Rene Soln 44 Ml Btl NASAL Q6HR PRN Congestion Radiology Results: ITS Impressions Abdomen X-Ray 04/13/23 06:07 Impression: NG tube in satisfactory position. Possible small bowel obstruction. Labs Labs: Laboratory Results - last 24 hr 04/15/23 05:43 WBC 6.9 RBC 3.96 L Hgb 11.7 L Hct 37.4 MCV 94.4 MCH 29.5 MCHC 31.3 L RDW 14.4 Plt Count 243 MPV 9.7 Sodium 138 Potassium
[2023-04-15 14:19] VITALS: BP 139/65; PULSE 74; RESP 16; TEMP 36.2; O2SAT 96
--- NOTE | 2023-04-15 16:19 | PM.DS ---
DS: Admitting Diagnosis Discharge Date 04/15/23 Admitting Diagnosis Abdominal pain DS: Discharge Diagnosis Discharge Diagnosis (1) Small bowel obstruction: Code(s): K56.609 - Unspecified intestinal obstruction, unspecified as to partial versus complete obstruction Status: Inactive (2) Incarcerated ventral hernia: Code(s): K43.6 - Other and unspecified ventral hernia with obstruction, without gangrene Status: Acute (3) Spigelian hernia: Code(s): K43.9 - Ventral hernia without obstruction or gangrene Status: Acute (4) GERD (gastroesophageal reflux disease): Code(s): K21.9 - Gastro-esophageal reflux disease without esophagitis Status: Acute (5) Demian's disease: Code(s): E06.3 - Autoimmune thyroiditis Status: Acute (6) UTI (urinary tract infection): Code(s): N39.0 - Urinary tract infection, site not specified Status: Acute DS: Summary Hospital Course Reason for hospitalization: 57yo female with GERD, spigelian hernia and thyroid disease here for abdominal pain and found to have SBO from the right sided spigelian hernia. Please see H&P for details. Hospital Course: Patient has a known spigelian hernia that has been bothering her for past few months.? She presented with abdominal pain and found to have a right-sided spigelian hernia containing a short segment of small bowel resulting small-bowel obstruction.? The hernia was able to be reduced at bedside.? Lactic acid level elevated at 2.3 but normalized. WBC peaked at 14K but normal now. Patient was seen by General surgery who recommended surgical intervention. She underwent an open incarcerated right spigelian hernia repair with mesh on 04/13.?Patient has tolerated the procedure well. Encouraged IS use. Encouraged her to be up walking. UA noted. She received cefazolin siva-operatively. Urine culture grew EColi that was sensitive to Rocephin. Rocephin was started. She had return of bowel function. Her diet was started and advanced. She tolerated this well. She overall did well and was able to be discharged home on 04/15/23 Status at Discharge Cognitive/behavioral status at discharge: stable Time Spent with Patient Time attestation: Total time spent providing and/or coordinating discharge services: 35 minutes Time spent: Greater than 30 minutes Exam Narrative: AF 97.1 139/65 74 16 96% ra Gen - NARD Chest - few bibasilar inspiratory crackles. CV - RRR S1/S2 Abd -soft. Positive bowel sounds. Minimal tenderness. Right lower quadrant incision is clean, dry and intact Ext - No pedal edema Psych -normal mood and affect. Skin - Warm and dry DS: Data Data Completed and Pending Pending studies at discharge: Pending at discharge 04/13/23 17:12 Surgical [PTH] Routine Labs on day of discharge: Labs from last 24 hours 04/15/23 05:43 WBC 6.9 RBC 3.96 L Hgb 11.7 L Hct 37.4 MCV 94.4 MCH 29.5 MCHC 31.3 L RDW 14.4 Plt Count 243 MPV 9.7 Sodium 138 Potassium 3.8 Chloride 104 Carbon Dioxide 29 Anion Gap 5 L BUN 9 Creatinine 0.60 L Estim Creat Clear Calc 96 Estimated GFR > 60 Glucose 107 Calcium 7.7 L Discharge Plan Discharge Attending physician on discharge: Kiran Peters Consulting providers: Saul Card; Brielle Mccurdy Discharging Clinician: Kiran Peters Anticipated Discharge Date/Time: 04/15/23 16:30 Patient Disposition: Home, Self-Care Activity: other - see discharge instructions Diet: regular Wound Care Instructions: other - see discharge instructions Discharge Instructions: DISCHARGE INSTRUCTION SHEET FOR HERNIA, GALLBLADDER AND APPENDIX SURGERIES DR. KRAMER PATIENT TO TAKE HOME 1. May shower, no soaking in bath x 2weeks. 2. Call office for: Wound increasingly painful or bleeding Vomiting Fever of greater than 101 degrees 3. If no bowel movement for three days, take 1 oz
== END 2023-04-15 18:13 | disposition home or self-care (01) | DRG 354 ==
PROVIDERS: Surgery; Admitting Provider Internal Medicine; PCP Internal Medicine; Visit Provider Internal Medicine
PROC: 0WQF0ZZ Repair Abdominal Wall, Open Approach (ICD-10-PCS; principal; 2023-04-13 16:30)
DX: K43.6 Other and unspecified ventral hernia with obstruction, without gangrene (principal); N39.0 Urinary tract infection, site not specified; K40.20 Bilateral inguinal hernia, without obstruction or gangrene, not specified as recurrent; K21.9 Gastro-esophageal reflux disease without esophagitis; E06.3 Autoimmune thyroiditis; B96.20 Unspecified Escherichia coli [E. coli] as the cause of diseases classified elsewhere
CPT/HCPCS: 36415; 80048; 80053; 81001; 83605; 85025; 85027; 85610; 85730; 87077; 87086; 87186; 88302; 93005; A9270; C1781; J0330; J0690; J0696; J1650; J2250; J2270; J2405; J2550; J2590; J2704; J3010; J7120

== ENCOUNTER 2023-06-24 07:43 | Outpatient (CLI) | payer OTHER, SELFPAY ==
[2023-06-24 09:07] LABS: Alanine Aminotransferase 17 U/L (14-59); Albumin Level 3.5 g/dL (3.4-5.0); Alkaline Phosphatase 101 U/L (46-116); Anion Gap 8 mmol/L (8-16); Aspartate Amino Transferase 13 U/L (15-37); Bilirubin,Total 0.6 mg/dL (0.00-1.00); Blood Urea Nitrogen 15 mg/dL (7-18); Calcium 8.9 mg/dL (8.5-10.1); Carbon Dioxide 29 mmol/L (21-32); Chloride 102 mmol/L (98-108); Estimated Glomerular Filt Rate > 60; Glucose 101 mg/dL (70-99); Magnesium 1.8 mg/dL (1.8-2.4); NT Pro B Type Natriuretic Pept 188 pg/mL (0-125); Osmolality Calculated 288 mOsm/kg (285-295); Potassium 4.3 mmol/L (3.5-5.1); Sodium 139 mmol/L (136-145); Total Protein 7.1 g/dL (6.4-8.2)
[2023-06-29 19:10] LABS: Vitamin D 25 Hydroxy 52 ng/mL (30-100)
== END 2023-06-24 07:44 | disposition home or self-care (01) ==
LOC: CHSLAB 07:45
PROVIDERS: PCP Internal Medicine; Visit Provider Internal Medicine
DX: R60.9 Edema, unspecified (principal); E55.9 Vitamin D deficiency, unspecified
CPT/HCPCS: 36415; 80053; 82306; 83735; 83880

== ENCOUNTER 2023-08-01 12:08 | Outpatient (CLI) | payer OTHER, SELFPAY ==
--- NOTE | ~2023-08-01 | MM_ITS ---
EXAMINATION: MM screening patricia BI w ambar HISTORY: Screening mammogram TECHNIQUE: Craniocaudal and mediolateral oblique 3-D tomosynthesis images were obtained and synthetic 2-D images were generated. CAD analysis was submitted and interpreted. COMPARISON: No prior mammogram is available for comparison at this institution. BREAST PARENCHYMAL COMPOSITION: There are scattered areas of fibroglandular density. FINDINGS: There is interval enlargement of a circumscribed oval opacity in the subareolar area of the left breast, currently measuring up to approximately 2 x 3.4 cm dimension. Left breast ultrasound is recommended given the interval increase in size. No suspicious mass, architectural distortion, malignant calcification, skin thickening or retraction or significant new or developing density of either breast is noted otherwise. IMPRESSION: 1. Interval increased size of left subareolar opacity 2. Left subareolar breast ultrasound examination is recommended BI-RADS Category 0: Incomplete: Needs additional imaging evaluation. Reviewed, dictated and finalized at location A.
== END 2023-08-01 12:09 | disposition home or self-care (01) ==
LOC: CHSIMG 12:09
PROVIDERS: PCP Internal Medicine; Visit Provider Nurse Practitioner
DX: Z12.31 Encounter for screening mammogram for malignant neoplasm of breast (principal); R92.8 Other abnormal and inconclusive findings on diagnostic imaging of breast
CPT/HCPCS: 77063; 77067

== ENCOUNTER 2023-08-30 11:11 | Outpatient (CLI) | payer OTHER, SELFPAY ==
--- NOTE | ~2023-08-30 | MMUS_ITS ---
EXAMINATION: MM diagnostic patricia LT w ambar, US breast LT complete HISTORY: . Interval increased size of left subareolar opacity reported on 08/01/2023 screening mammogr am TECHNIQUE: Additional 3-D tomosynthesis images of the left breast were performed and synthetic 2-D im ages were generated. CAD analysis was submitted and interpreted. High resolution subareolar left sha st ultrasound was performed. COMPARISON: 08/01/2023 bilateral screening mammogram 06/06/2023 bilateral complete breast ultrasound 06/03/2022 bilateral diagnostic mammogram FINDINGS: MAMMOGRAPHIC FINDINGS: There is increased density in the subareolar area of the left breast since prior examinations. ULTRASOUND: There is a subareolar circumscribed sonolucency measuring up to 3.4 x 1.7 x 2.6 cm, increased in size from 2.3 x 2.8 x 1.2 cm on prior ultrasound of 06/06/2022. There is through transmission posterior enh ancement. There is an adjacent 2.7 x 6.4 x 8 mm circumscribed parallel sonolucency consistent with smaller cyst s. No suspicious mass or shadowing is detected. IMPRESSION: 1. Benign findings 2. Routine annual mammographic screening is recommended BI-RADS Category 2: Benign finding(s). Reviewed, dictated and finalized at location A. IMPRESSION: 1. Benign findings 2. Routine annual mammographic screening is recommended BI-RADS Category 2: Benign finding(s).
== END 2023-08-30 11:12 | disposition home or self-care (01) ==
PROVIDERS: PCP Internal Medicine; Visit Provider Obstetrics & Gynecology Gynecology
DX: R92.8 Other abnormal and inconclusive findings on diagnostic imaging of breast (principal)
CPT/HCPCS: 76641; 77061; 77065; G0279

== ENCOUNTER 2024-02-17 07:26 | Outpatient (CLI) | payer OTHER, SELFPAY ==
[2024-02-17 08:21] LABS: Basophils Absolute Auto 0.05 K/mm3 (0.00-0.10); Basophils Percent Auto 0.7 % (0.0-1.0); Eosinophils Absolute Auto 0.11 K/mm3 (0.02-0.50); Eosinophils Percent Auto 1.5 % (1.0-6.0); Hematocrit 39.8 % (35.0-49.0); Hemoglobin 12.8 g/dL (12.0-15.0); Immature Granulocyte Absolute 0.03 K/mm3 (0.00-0.00); Immature Granulocyte Percent A 0.4 % (0.0-0.0); Lymphocytes Absolute Auto 1.49 K/mm3 (1.10-4.50); Lymphocytes Percent Auto 19.8 % (18.0-42.0); Mean Corpuscular HGB Conc 32.2 g/dL (32-36); Mean Corpuscular Hemoglobin 29.8 pg (27.0-31.0); Mean Corpuscular Volume 92.8 fL (78.0-102.0); Mean Platelet Volume 9.8 fl (9.2-11.8); Monocytes Absolute Auto 0.41 K/mm3 (0.10-0.90); Monocytes Percent Auto 5.4 % (2.0-11.0); Neutrophils Absolute Auto 5.44 K/mm3 (1.70-7.20); Neutrophils Percent Auto 72.2 % (50.0-70.0); Platelet Count Result 293 K/mm3 (150-420); Red Blood Count 4.29 M/mm3 (4.20-5.40); Red Cell Distribution Width 13.6 % (11.6-14.4); White Blood Count 7.5 K/mm3 (4.8-10.8)
[2024-02-17 09:27] LABS: Alanine Aminotransferase 24 U/L (14-59); Albumin Level 3.5 g/dL (3.4-5.0); Alkaline Phosphatase 88 U/L (46-116); Anion Gap 9 mmol/L (4-12); Aspartate Amino Transferase 16 U/L (15-37); Bilirubin,Total 0.5 mg/dL (0.00-1.00); Blood Urea Nitrogen 15 mg/dL (7-18); Calcium 8.7 mg/dL (8.5-10.1); Carbon Dioxide 29 mmol/L (21-32); Chloride 102 mmol/L (98-108); Cholesterol 228 mg/dL (0-200); Estimated Glomerular Filt Rate > 60; Glucose 107 mg/dL (70-99); HDL Direct 61 mg/dL (40-60); LDL Cholesterol Calculated 121 mg/dL (<130); Osmolality Calculated 290 mOsm/kg (285-295); Potassium 4.4 mmol/L (3.5-5.1); Sodium 140 mmol/L (136-145); Thyroid Stimulating Hormone 1.52 uIU/mL (0.36-3.74); Triglycerides 228 mg/dL (0-150)
[2024-02-19 09:53] LABS: Hemoglobin A1C 5.3 % (<5.7)
== END 2024-02-17 07:27 | disposition home or self-care (01) ==
LOC: CHSLAB 07:29
PROVIDERS: PCP Internal Medicine; Visit Provider Internal Medicine
DX: Z00.00 Encounter for general adult medical examination without abnormal findings (principal); E03.9 Hypothyroidism, unspecified; E78.5 Hyperlipidemia, unspecified
CPT/HCPCS: 36415; 80053; 80061; 83036; 84443; 85025

== ENCOUNTER 2024-07-15 16:07 | Outpatient (CLI) | payer OTHER, SELFPAY ==
[2024-07-15 17:29] LABS: Vitamin D 25 Hydroxy 66.1 ng/mL
== END 2024-07-15 16:08 | disposition home or self-care (01) ==
LOC: ANHLAB 16:09
PROVIDERS: PCP Internal Medicine; Visit Provider Nurse Practitioner
DX: E55.9 Vitamin D deficiency, unspecified (principal)
CPT/HCPCS: 36415; 82306

== ENCOUNTER 2024-08-26 10:17 | Outpatient (CLI) | payer OTHER, SELFPAY ==
--- NOTE | ~2024-08-26 | MM_ITS ---
EXAMINATION: MM screening patricia BI w ambar HISTORY: Screening TECHNIQUE: Craniocaudal and mediolateral oblique 3-D tomosynthesis images were obtained and synthetic 2-D images were generated. CAD analysis was submitted and interpreted. COMPARISON: Comparison to multiple prior studies sequentially, with oldest reviewed study dated 06/30. BREAST PARENCHYMAL COMPOSITION: Not dense: There are scattered areas of fibroglandular density. FINDINGS: There is no evidence of suspicious mass, calcification, or architectural distortion to sugg est malignancy in either breast. There has been no suspicious interval change. IMPRESSION: 1. No mammographic evidence of malignancy. 2. Recommend routine screening mammography in one year. BI-RADS Category 1: Negative Reviewed, dictated and finalized at location B.
--- NOTE | ~2024-08-26 | DEXA_ITS ---
Bone Density Report Name: DI BORGES Age: 59 Sex: Female Ethnicity: White Date of : 1965 Indication: hyperparathyroidism; hysterectomy; Referring Provider: Leila, Elva Study: Bone densitometry was performed. Exam Date: August 26, 2024 Accession number: [id number] Bone Density: Region BMD T-score Z-score Classification AP Spine(L1, L2, L3) 1.137 1.1 2.5 Normal Femoral Neck (Left) 0.833 -0.1 1.2 Normal Total Hip (Left) 1.004 0.5 1.5 Normal Femoral Neck (Right) 0.875 0.2 1.6 Normal Total Hip (Right) 1.096 1.3 2.3 Normal Femoral Neck Mean 0.854 0.0 1.4 Normal Total Hip Mean 1.050 0.9 1.9 Normal World Health Organization criteria for BMD impression classify patients as: Normal (T-score at or above -1.0), Osteopenia (T-score between -1.0 and -2.5), or Osteoporosis (T-score at or below -2.5). 10-year Fracture Risk: FRAX not reported because: All T-scores for Spine Total, Hip Total, Femoral Neck at or above -1.0 Previous Exams: Region Exam Age BMD T-score BMD Change BMD Change Date g/cm2 vs Baseline vs Previous AP Spine (L1-L3) 08/26/2024 59 1.137 1.1 0.033 (3.0%)# 0.007 (0.6%) 07/05/2021 56 1.130 1.0 0.026 (2.4%)# 0.025 (2.2%)# 06/12/2019 53 1.105 0.8 0.002 (0.1%)! -0.010 (-0.9%) 05/04/2016 50 1.115 0.9 0.011 (1.0%)! 0.081 (7.8%)* 08/26/2013 48 1.034 0.1 -0.070 (-6.3%) -0.070 (-6.3%) 01/09/2009 43 1.104 0.8 Total Hip(Left) 08/26/2024 59 1.004 0.5 0.002 (0.2%)# -0.003 (-0.3%) 07/05/2021 56 1.007 0.5 0.005 (0.5%)# 0.015 (1.6%)# 06/12/2019 53 0.992 0.4 -0.010 (-1.0%) -0.020 (-2.0%) 05/04/2016 50 1.012 0.6 0.010 (1.0%) 0.028 (2.9%)* 08/26/2013 48 0.984 0.3 -0.019 (-1.9%) -0.019 (-1.9%) 01/09/2009 43 1.002 0.5 Total Hip(Right) 08/26/2024 59 1.096 1.3 0.071 (7.0%)# 0.014 (1.3%) 07/05/2021 56 1.082 1.1 0.057 (5.6%)# 0.064 (6.3%)# 06/12/2019 53 1.018 0.6 -0.007 (-0.6%) 0.009 (0.9%) 08/26/2013 48 1.009 0.5 -0.016 (-1.6%) -0.016 (-1.6%) 01/09/2009 43 1.025 0.7 *Denotes significance at 95% confidence level, LSC for AP Spine = 0.022 g/cm2, LSC for Total Hip = 0.027 g/cm2 # Denotes dissimilar scan types or analysis methods Clinical Information Provided by Patient: Has used the following medications: HRT (i.e. estrogen/hormone therapy), Vitamin D Has the following medical conditions: Hyperparathyroidism, Hysterectomy
== END 2024-08-26 10:18 | disposition home or self-care (01) ==
LOC: CHSIMG 10:19
PROVIDERS: PCP Internal Medicine; Visit Provider Nurse Practitioner
DX: Z12.31 Encounter for screening mammogram for malignant neoplasm of breast (principal); Z78.0 Asymptomatic menopausal state
CPT/HCPCS: 77063; 77067; 77080

== ENCOUNTER 2025-02-22 08:11 | Outpatient (CLI) | payer OTHER, SELFPAY ==
--- OUTSIDE RECORDS SUMMARY | 2025-02-22 08:17 | XMS_ITS | Clinical Summary ---
Author Organization [facility] [employer] Address [address] [place] [address] Care Team Providers Care Entry Processor Name Role Phone Cesar Torres MD Primary Care Provider [phone] [facility] [employer],non-owned Affiliates and Associated Physician Practices is amultiple site organization consisting of ambulatory clinics and hospital sitesin [place], [place], [place] and [place]. This disclosure is being madepursuant to the Care Everywhere program and may not contain all information available regarding this patient. Last updated 18.[facility] [employer] Allergies Active Allergy Reactions Criticality Noted Date Comments Sulfa Drugs Urticaria Medium 07/28/2021 Medications * Be aware that medications may not be up to date on this document. Alwaysverify current medications with the patient. citalopram (CELEXA) 20 MG tablet 07/25/2021 Active estradiol (ESTRACE) 1 MG tablet 07/25/2021 Active levothyroxine (SYNTHROID) 100 MCG tablet Take 100 mcg by mouth once daily 06/02/2021 Active vitamin D, ergocalciferol, (DRISDOL) 1.25 MG (13567 UT) capsule Take 50,000 Units by mouth every 7 days 05/24/2021 Active Cholecalciferol (VITAMIN D3 PO) Acti ve MULTIPLE VITAMIN PO Active clobetasol (TEMOVATE) 0.04 % cream Apply to affected area 2 times daily Active Active Problems Problem Noted Date Diagnosed Date Perineocele Rectocele Enterocele Immunizations Immunization Administration Dates Next Due Covid Moderna primary monova lent 12+ yr 0.5mL 09/10/2021,11/30/2020,11/02/2020 Social History Tobacco Use Types Packs/Day Years Used Date Smoking Tobacco: Never Smokeless Tobacco: Never Alcohol Use Standard Drinks/Week Comments Yes 0 (1 standard drink = 0.6 oz pur e alcohol) rare Comments No Sex and Gender Information Value Date Recorded Sex Assigned at Not on file Legal Sex Female 7:06 PM [employer] Gender Identity Not on file Sexual Orientation Not on file Last Filed Vital Signs Vital Sign Reading Time Taken Comments Blood Pressure 120/76 03/02/2022 9:48 AM CDT Pulse 75 10/19/2021 7:32 AM [employer] Temperature 36.6 C (97.8 F) 03/02/2022 9:48 AM CDT Respiratory Rate 18 10/19/2021 7:32 AM [employer] Oxygen Saturation 97% 10/19/2021 7:32 AM [employer] Inhaled Oxygen Concentration - - Weight 89.5 kg (197 lb 6.4 oz) 03/02/2022 9:48 A M CDT Height 165.1 cm (5' 5 ) 03/02/2022 9:48 AM CDT Body Mass Index 32.85 03/02/2022 9:48 AM CDT Plan of Treatment Health Maintenance Due Date Last Done Comments COLOGUARD (AGES 45-75) - COL ON CA SCREENING 1963 COLON MONITORING 1963 COLONOSCOPY - COLON CA SCREENING 1963 CT COLONOGRAPHY - COLON CA SCREENING 1963 Colorectal Cancer Screening 1963 FIT - COLON CA SCREENING 1963 FLEX SIG - COLON CA SCREENING 1963 LIPID TESTING 1963 MAMMOGRAM 1963 HIV SCREENING 1978 HEPATITIS C SCREENING 06/11/1981 DTAP/TDAP/TD VACCINES (1 - Tdap) 1982 PNEUMOCOCCAL VACCINE 50+ (1 of 1 - PCV) 2013 ZOSTER VACCINE (1 of 2) 2013 SCREENING FOR DIABETES 10/26/2021 COVID-19 VACCINE (4 - 2023-2 5 season) 2024 09/10/2021, 11/30/2020, 11/02/2020 DEPRESSION SCREENING 11/06/2024 INFLUENZA VACCINE (Season Ended) 2025 09/01/2022 Respiratory Syncytial Virus (RSV) Vaccine Pt: or over 60 yrs (1 - 1-dose 75+ series) 2038 HEPATITIS B VACCINE Aged Out No longe r eligible based on patient's age to complete this topic HIB VACCINE Aged Out No longer eligi ble based on patient's age to complete this topic HPV VACCINE Aged Out No longer eligi ble based on patient's age to complete this topic MENINGOCOCCAL (Group B) VACCINE SHARED DECISION-MAKING Aged Out No longer eligible based on patient's age to complete this topic MENINGOCOCCAL GROUPS A/C/Y/W VACCINE Aged Out No longer eligible b ased on patient's age to complete this topic Insurance [facility] Care Teams Entry Processor Relationship Specialty Start Date End Date Cesar Torres MD [address] [place] [address] PCP - General 12/26/11
[2025-02-22 08:25] LABS: Basophils Absolute Auto 0.05 K/mm3 (0.00-0.10); Basophils Percent Auto 0.7 % (0.0-1.0); Eosinophils Absolute Auto 0.08 K/mm3 (0.02-0.50); Eosinophils Percent Auto 1.2 % (1.0-6.0); Hemoglobin 12.8 g/dL (12.0-15.0); Immature Granulocyte Absolute 0.02 K/mm3 (0.00-0.00); Immature Granulocyte Percent A 0.3 % (0.0-0.0); Lymphocytes Absolute Auto 1.69 K/mm3 (1.10-4.50); Lymphocytes Percent Auto 24.7 % (18.0-42.0); Mean Corpuscular Hemoglobin 29.8 pg (27.0-31.0); Mean Platelet Volume 9.3 fl (9.2-11.8); Monocytes Absolute Auto 0.29 K/mm3 (0.10-0.90); Monocytes Percent Auto 4.2 % (2.0-11.0); Neutrophils Percent Auto 68.9 % (50.0-70.0); Platelet Count Result 265 K/mm3 (150-420); Red Cell Distribution Width 13.5 % (11.6-14.4); White Blood Count 6.8 K/mm3 (4.8-10.8)
[2025-02-22 09:09] LABS: Alanine Aminotransferase 14 U/L (14-59); Albumin Level 3.5 g/dL (3.4-5.0); Alkaline Phosphatase 96 U/L (46-116); Anion Gap 10 mmol/L (4-12); Aspartate Amino Transferase 12 U/L (15-37); Bilirubin,Total 0.6 mg/dL (0.00-1.00); Blood Urea Nitrogen 20 mg/dL (7-18); Calcium 8.8 mg/dL (8.5-10.1); Carbon Dioxide 26 mmol/L (21-32); Chloride 103 mmol/L (98-108); Cholesterol 237 mg/dL (0-200); Estimated Glomerular Filt Rate > 60; Glucose 112 mg/dL (70-99); HDL Direct 55 mg/dL (40-60); LDL Cholesterol Calculated 143 mg/dL (<130); Osmolality Calculated 291 mOsm/kg (285-295); Potassium 4.3 mmol/L (3.5-5.1); Sodium 139 mmol/L (136-145); Thyroid Stimulating Hormone 2.24 uIU/mL (0.36-3.74); Total Protein 7.1 g/dL (6.4-8.2); Triglycerides 196 mg/dL (0-150)
[2025-02-24 12:49] LABS: Hemoglobin A1C 5.6 % (<5.7)
== END 2025-02-22 08:12 | disposition home or self-care (01) ==
LOC: CHSLAB 08:15
PROVIDERS: PCP Internal Medicine; Visit Provider Internal Medicine
DX: Z00.00 Encounter for general adult medical examination without abnormal findings (principal); E78.5 Hyperlipidemia, unspecified; E03.9 Hypothyroidism, unspecified
CPT/HCPCS: 36415; 80053; 80061; 83036; 84443; 85025

== ENCOUNTER 2025-04-14 07:10 | Outpatient (CLI) | payer OTHER, SELFPAY ==
--- NOTE | ~2025-04-14 | CT_ITS ---
Non-contrast CT scan of the Pelvis Clinical indication: Right lower quadrant pain, hernia Technique: 2.5 mm axial scans were obtained through the pelvis without intravenous or oral contrast. Dose reduction technique was used on this scan by utilizing automated exposure control and iterative reconstruction technique. The dose-length product (DLP) was 841.48 mGy-cm. COMPARISON: 04/12/2023 Findings: Urinary bladder unremarkable. Patient is post hysterectomy. No adnexal mass seen. No ascite s. Visualized bowel loops are unremarkable. There is a small to moderate fat-containing ventral hernia i n the midline inferior to the umbilicus. No lymphadenopathy is seen. No fracture or dislocation seen. Impression: Small to moderate fat-containing midline ventral hernia inferior to the umbilicus. Reviewed, dictated and finalized at location . Impression: Small to moderate fat-containing midline ventral hernia inferior to the umbilic us.
--- OUTSIDE RECORDS SUMMARY | 2025-04-14 07:14 | XMS_ITS | Clinical Summary ---
Author Organization [facility] [email or web address] Address [address] [place] [address] Care Team Providers Care Construction Equipment Mechanic Helper Name Role Phone Cesar Torres MD Primary Care Provider [phone] Source Comments [facility] [email or web address],non-owned Affiliates and Associated Physician Practices is amultiple site organization consisting of ambulatory clinics and hospital sitesin [place], [place], [place] and [place]. This disclosure is being madepursuant to the Care Everywhere program and may not contain all information available regarding this patient. 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 Gender Identity Not on file Sexual Orientation Not on file Last Filed Vital Signs Vital Sign Reading Time Taken Comments Blood Pressure 120/76 03/02/2022 9:48 AM CDT Pulse 75 10/19/2021 7:32 AM PAYROLL TECHNICIAN Temperature 36.6 C (97.8 F) 03/02/2022 9:48 AM CDT Respiratory Rate 18 10/19/2021 7:32 AM PAYROLL TECHNICIAN Oxygen Saturation 97% 10/19/2021 7:32 AM PAYROLL TECHNICIAN Inhaled Oxygen Concentration - - Weight 89.5 kg (197 lb 6.4 oz) 03/02/2022 9:48 A M CDT Height 165.1 cm (5' 5) 03/02/2022 9:48 AM CDT Body Mass Index [...] patient's age to complete this topic Insurance [facility] Care Teams Construction Equipment Mechanic Helper Relationship Specialty Start Date End Date Cesar Torres MD [address] [place] [address] PCP - General 12/26/11
== END 2025-04-14 07:11 | disposition home or self-care (01) ==
LOC: CHSIMG 07:10
PROVIDERS: PCP Internal Medicine; Visit Provider Surgery
DX: R10.31 Right lower quadrant pain (principal); K43.9 Ventral hernia without obstruction or gangrene
CPT/HCPCS: 72192

== ENCOUNTER 2025-04-28 13:24 | Outpatient (CLI) | payer OTHER, SELFPAY ==
--- NOTE | 2025-04-28 13:44 | ECG_ITS ---
Test Date: 2025-04-28 13:53:52 Measurements Intervals [place] Rate: 56 P: 56 [place]: 160 QRS: -4 QRSD: 106 T: 20 QT: 442 QTc: 429 Interpretive Statements SINUS BRADYCARDIA MISSING LEAD V1 BORDERLINE ST-T WAVE ABNORMALITY- INFERIOR LEADS BASELINE ARTIFACT- I, II, III, AVR, AVL, AVF BORDERLINE ECG No previous ECG available for comparison Electronically Signed On 04-28-2025 14:12:36 CDT by Jabari Perrin D.O.
[2025-04-28 14:05] LABS: Anion Gap 9 mmol/L (4-12); Blood Urea Nitrogen 16 mg/dL (7-17); Calcium 9.1 mg/dL (8.4-10.2); Carbon Dioxide 26 mmol/L (22-30); Chloride 103 mmol/L (98-107); Estimated Glomerular Filt Rate > 60; Glucose 98 mg/dL (65-110); Sodium 138 mmol/L (137-145)
== END 2025-04-28 13:25 | disposition home or self-care (01) ==
LOC: ANHSURGERY 13:28
PROVIDERS: PCP Internal Medicine; Visit Provider Surgery
DX: Z01.818 Encounter for other preprocedural examination (principal); R94.31 Abnormal electrocardiogram [ECG] [EKG]; Z98.890 Other specified postprocedural states; Z87.19 Personal history of other diseases of the digestive system
CPT/HCPCS: 36415; 80048; 86850; 86900; 86901; 93005

== ENCOUNTER 2025-04-30 00:24 | Day surgery (SDC) | payer OTHER, SELFPAY ==
[2025-04-25 10:19] VITALS: BMI 32.5
--- NOTE | 2025-04-25 10:20 | PC.NURSE ---
Report to the Outpatient Waiting Room, entrance under the green pavilion located off [facility], at time _0930_ on date _[id number]_. Planned Procedure Time: _1130_.? Time changes happen often and if your time is changed the preop area will call you the afternoon before. - You and your visitor will be asked to self-screen and do not enter if you have any COVID symptoms. Please call surgeon if you need to reschedule. - A mask is optional within the hospital at this time. Patients may have clear liquids (water, carbonated beverages, clear teas, apple juice) until 3 hours prior to surgery with a maximum of 20 ounces. - No food from midnight until time of surgery and no smoking, or chewing tobacco (or any form of nicotine). No chewing gum, candy or mints. Take only the following medications with a SIP of water on the morning of surgery: ____Citalopram and Levothyroxine DO NOT STOP ANY OF YOUR OTHER PRESCRIPTION MEDICATIONS PRIOR TO SURGERY EXCEPT THE FOLLOWING Hold all vitamins and supplements for 3 days per anesthesiologist. Medications to discontinue per physician Date to take last hhzt___[phone]____ Please no make-up, nail south african, hairspray, perfume, deodorant, or body powder the day of surgery.? No jewelry (including any body piercings) or valuables the day of surgery, leave them at home.? Please take a shower or bath the night before, or the morning of, surgery with an antibacterial soap.? Wear comfortable, loose fitting clothing.? - Jewelry must be removed prior to entering the operating room.? Rings and piercings that are not removed may be cut off. - The hospital will not accept responsibility for valuables.? - Please leave all valuables, including medications, at home the day of surgery. If you are going home after surgery, a licensed inventory associate and driver must drive you home.? - NO public transportation without another adult if you receive anesthesia. - We recommend that an adult stay with you for 24 hours following discharge. - We also recommend that you do not drive, make important decision, drink alcoholic beverages, or take any drugs that were not prescribed by your health care provider for at least 24 hours after your discharge time. Follow any additional instructions given to you from your surgeon. Telephone instructions given to __Crystala___and asked if any additional questions and then verbalized understanding. Patient advised to call surgeon office or pre surgery nurse liaison [phone] if any additional questions.
[2025-04-30] VITALS (9 sets, daily range): BP systolic 113–137; BP diastolic 51–80; PULSE 57–68; RESP 12–20; TEMP 36.2–36.4; O2SAT 94–100; BMI 32.4
[2025-04-30] MEDS: KETOROLAC 15 MG/ML VIAL (*BKC) IV PUSH (10:00)
[2025-04-30] MEDS: LACTATED RINGERS 1,000 ML 30 ML IV CONT ×2 (10:00→12:34)
[2025-04-30] MEDS: ACETAMINOPHEN 500 MG TABLET 1000 MG PO (10:00)
--- NOTE | 2025-04-30 10:09 | P.HP_ITS ---
H&P: HPI History of Present Illness Date/Time: 04/30/25 10:09 Chief Complaint: Incarcerated incisional hernia Narrative: This is a 59-year-old woman who presents with an incarcerated lower midline incisional hernia. She had been experiencing pain in the infraumbilical region just to the right of midline. A CT pelvis was performed and this showed evidence of an incarcerated hernia containing fat. She now presents for robotic assisted laparoscopic repair. She reports no changes since last seen in the office. Review of Systems Review of Systems: All systems reviewed & are unremarkable except as noted in HPI and below Constitutional: Constitutional: Denies chills, Denies fever(s), Denies headache(s) and Denies weight loss Eyes: Eyes: Denies change in vision ENT: Denies dizziness, Denies headache(s), Denies neck mass and Denies throat swelling Cardiovascular: Cardiovascular: Denies chest pain, Denies lightheadedness and Denies dyspnea Respiratory: Respiratory: Denies cough, Denies dyspnea and Denies wheezing Gastrointestinal: Gastrointestinal: Denies abdominal pain, Denies change in bowel habits, Denies nausea and Denies vomiting Genitourinary: Genitourinary: Denies hematuria and Denies dysuria Musculoskeletal: Musculoskeletal: Reports as per HPI Integumentary/Breasts: Skin/Breast: Reports as per HPI Neurologic: Denies dizziness and Denies headache(s) Allergic/Immunologic: Allergic/Immunologic: Denies throat swelling and Denies wheezing [facility] Past Medical History Medical History Obesity Spigelian hernia Hyperlipidemia GERD (gastroesophageal reflux disease) Demian's disease Surgical History Surgical History Hx of hernia repair Open 3 cm incarcerated R Spigelian hernia rep w/mesh on 04/13/23 Rectocele 10/2021 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) Smoking status: Never smoker Alcohol intake: current Drinks per week: 1 Alcohol use details: Rarely Substance use: never Substance use type: does not use Do You Feel Safe in your Home?: Yes Lack of Transportation: No Lack of Food: Never True Current Housing: I Have Housing Concerned About Future Housing: No Difficulty Paying Gas/Electric Bills: No Difficulty Paying for Meds: No Currently Unemployed: No Education: High School Diploma/GED Difficulty w/ Childcare or Family Care: No Living arrangements: with family 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 [employer] Spiritual care concerns: No Meds Home Medications and Allergies Home Medications ?Medication ?Instructions ?Recorded ?Confirmed ?Type citalopram 20 mg tablet 20 mg PO DAILY 02/01/21 04/25/25 History ergocalciferol (vitamin D2) 1,250 1,250 mcg PO WEEKLY 02/01/21 04/25/25 History mcg (50,000 unit) capsule (Vitamin D2) estradiol 1 mg tablet 1 mg PO DAILY 02/01/21 04/25/25 History levothyroxine 100 mcg capsule 100 mcg PO DAILY 02/01/21 04/25/25 History vitamin B complex (B 1 tablet PO DAILY 02/01/21 04/25/25 History Complex-Vitamin B12 tablet) calcium polycarbophil 625 mg 1,250 mg PO DAILY 08/26/22 04/25/25 History tablet ([employer]) pantoprazole 40 mg tablet,delayed 40 mg PO DAILY 04/05/23 04/25/25 History release spironolactone 25 mg tablet 25 mg PO DAILY 04/05/23 04/25/25 History multivitamin with minerals-folic 1 tablet PO DAILY 04/25/25 04/25/25 History acid 0.4 mg tablet (One-A-Day Cholesterol Plus) Allergies Allergy/AdvReac Type Severity Reaction Status Date / Time Sulfa (Sulfonamide Allergy Unknown Rash Verified 04/25/25 10:12 Antibiotics) Exam Const: General: no acute distress and alert Orientation/consciousness: patient oriented x3 HENMT: Head: normocephalic and atraumatic Ears: hearing grossly normal bilaterally Face/Nose/Sinus: Normal nares present Mouth: Yes Normal oral and palatal mucosa present Eyes: Periorbital: periorbital findings normal Sclera: sclerae normal EOM: EOMs intact bilaterally Neck: Neck: normal visual inspection, no lymphadenopathy and trachea midline Chest: Chest palpation & inspection: normal inspection of the chest Resp: Effort & Inspection: normal respiratory effort Auscultation: clear to auscultation bilaterally Cardio: Jugular venous distension: no JVD Rate: regular rate Rhythm: regular rhythm Heart sounds: S1 normal heart sound present and S2 normal heart sound present Peripheral pulses: Peripheral pulses 2+ throughout GI: Inspection: normal to inspection GI Palp: Yes Soft to palpation, No Tenderness to palpation present (GI), No Guarding due to palpation present (GI), Yes Hernia present incisional < 3 cm (Lower midline) and No Rebound tenderness present Percussion: Yes normal to percussion Auscultation: normal bowel sounds : General: Yes no CVA tenderness Back/Spine/Pelvis: Back: no CVA tenderness Neuro: General: patient oriented x3, no focal motor deficits and CN's II-XI intact bilaterally Cognition (Neuro): normal cognition Speech: normal speech Motor exam (neuro): 5/5 motor strength present throughout Extrem: General: capillary refill normal and no clubbing, cyanosis or edema Assessment and Plan Assessment and plan (1) Incarcerated incisional hernia: Code(s): K43.0 - Incisional hernia with obstruction, without gangrene Status: Acute Assessment and Plan: I have recommended laparoscopic incarcerated incisional hernia repair with mesh, da Khai assisted. I have discussed the procedure, risks, benefits, and alternatives with the patient. All questions answered. No changes since last seen in office.
--- NOTE | 2025-04-30 10:09 | WPDHPUPDATE1 ---
History and Physical Update Update Date/Time: 04/30/25 10:09 History and Physical has been reviewed, including an updated exam of the patient. There are NO changes in the patient's condition. Risks, benefits, and alternatives have been discussed and questions answered. Patient agrees to proceed with procedure.
--- NOTE | 2025-04-30 10:13 | WPDANESEPPF ---
Anes - Initial Pre Proc Eval Procedure: Operation Date: 04/30/25 11:30 Proposed Procedures p Laparoscopic Incarcerated Incisional Hernia Repair, Davinci Assisted with Mesh - William Palomo DO Date/Time: 04/30/25 10:13 Surgeon: William Palomo DO Pre Op Diagnosis: Incarcerated Incisional Hernia 2cm Patient Data Age: 59 Gender: F Height: 1.65 m Weight: 88.6 kg Allergies Allergy/AdvReac Type Severity Reaction Status Date / Time Sulfa (Sulfonamide Allergy Unknown Rash Verified 04/25/25 10:12 Antibiotics) Home Medications ?Medication ?Instructions ?Recorded ?Confirmed ?Type citalopram 20 mg tablet 20 mg PO DAILY 02/01/21 04/25/25 History ergocalciferol (vitamin D2) 1,250 1,250 mcg PO WEEKLY 02/01/21 04/25/25 History mcg (50,000 unit) capsule (Vitamin D2) estradiol 1 mg tablet 1 mg PO DAILY 02/01/21 04/25/25 History levothyroxine 100 mcg capsule 100 mcg PO DAILY 02/01/21 04/25/25 History vitamin B complex (B 1 tablet PO DAILY 02/01/21 04/25/25 History Complex-Vitamin B12 tablet) calcium polycarbophil 625 mg 1,250 mg PO DAILY 08/26/22 04/25/25 History tablet (FiberCon) pantoprazole 40 mg tablet,delayed 40 mg PO DAILY 04/05/23 04/25/25 History release spironolactone 25 mg tablet 25 mg PO DAILY 04/05/23 04/25/25 History multivitamin with minerals-folic 1 tablet PO DAILY 04/25/25 04/25/25 History acid 0.4 mg tablet (One-A-Day Cholesterol Plus) Patient hx anesthesia problems: none Family hx anesthesia problems: none Results Review: All pre-operative results and documents have been reviewed as part of the pre-operative evaluation. [facility] Past Medical History Medical History Obesity Spigelian hernia Hyperlipidemia GERD (gastroesophageal reflux disease) Demian's disease Surgical History Surgical History Hx of hernia repair Open 3 cm incarcerated R Spigelian hernia rep w/mesh on 04/13/23 Rectocele 10/2021 [facility] History of total abdominal hysterectomy vaginal approach History of appendectomy As a child History of tonsillectomy and adenoidectomy As a child Social History Social History Smoking status: Never smoker Alcohol intake: current Drinks per week: 1 Alcohol use details: Rarely Substance use: never Substance use type: does not use Do You Feel Safe in your Home?: Yes Lack of Transportation: No Lack of Food: Never True Current Housing: I Have Housing Concerned About Future Housing: No Difficulty Paying Gas/Electric Bills: No Difficulty Paying for Meds: No Currently Unemployed: No Education: High School Diploma/GED Difficulty w/ Childcare or Family Care: No Living arrangements: with family 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 Informed Consent: The patient's anesthetic plan and its attendant risks and benefits were discussed with the patient/family/POA. Questions were solicited and answers provided to the satisfaction of the patient/family/POA.
[2025-04-30] MEDS: ceFAZolin 2 GM/D5W 50 ML 2 GM/50 ML BAG IVPB (10:42)
[2025-04-30] MEDS: BUPIVACAINE/EPINEPHRINE 0.5% 30 ML VIAL INFILTRATE (11:08)
--- NOTE | 2025-04-30 12:40 | P.OP_ITS ---
Procedure Note - Detailed Date of Procedure 04/30/25 Pre-op Diagnosis Incarcerated Incisional Hernia Post-op Diagnosis Same (2 cm incarcerated incisional hernia) Procedure Performed Laparoscopic 2 cm incarcerated incisional hernia repair with mesh, da Khai assisted Surgeon William Palomo DO Anesthesia General and Local (0.5% bupivacaine with epinephrine) Indications This is a 59-year-old woman who presented with an incarcerated incisional hernia in her lower midline abdomen. She had been experiencing pain for the past year. This has been intermittent at times but pain has become more frequent. She had some tenderness radiating to the right side and had a prior history of right spigelian hernia repair with mesh. No recurrent hernia was palpable in the location of the prior repair, but tenderness and a slight bulge was noticed just to the right of midline in the infraumbilical region. A CT pelvis was performed and this showed evidence of a hernia incarcerated with fat. This appeared to be in location of her prior hysterectomy. Discussions were made with the patient about treatment options and decision was made to proceed with robotic assisted laparoscopic incarcerated incisional hernia repair with mesh. Findings Robotic assisted laparoscopic incarcerated incisional hernia repair with mesh was performed. The patient was found to have a 2 cm infraumbilical incisional hernia incarcerated with fat. There was some adhesions around this area as well mostly involving the omentum. Once the adhesions were taken down I was able to clearly visualize the hernia defect. The hernia measured 2 cm. A robotic transabdominal preperitoneal approach was utilized for repair. Once a wide enough preperitoneal pocket was created, I then reapproximated the fascia using 0 Stratafix running absorbable suture. A Ventralight ST 15 cm x 10 cm mesh was placed and the peritoneum was closed over the mesh. No specimens were obtained for pathology. The prior right spigelian hernia repair appeared intact with the mesh in proper position. Description of Procedure Procedure as well as risks, benefits, and alternatives were discussed with the patient. Written consent was obtained and placed in chart prior to procedure. Patient was brought back to surgical suite. She was placed supine on operating table. Time-out was done to confirm patient and procedure. She was then intubated by the anesthesia department. The bed was flexed slightly to extend the space between her costal margin and iliac crest. Her abdomen was prepped and draped in sterile fashion using chlorhexidine prep. A 5 millimeter incision was made in the left upper quadrant, and a 5 millimeter Optiview trocar was advanced through the abdominal layers under direct visualization. Once inside the abdominal cavity, carbon dioxide insufflation was used to create a pneumoperitoneum. Her abdomen was inspected. An 8 millimeter incision was made in the right upper quadrant, and an 8 millimeter robotic trocar was placed under direct visualization. Another 8 millimeter incision was made in the upper midline abdomen, and an 8 millimeter robotic trocar was placed under direct visualization. 0.5% bupivacaine with epinephrine was infiltrated around each port site. The 5 millimeter port was removed, and an 8 mm robotic trocar was placed under direct visualization. The robotic arms were brought up to the patient's bedside and secured to the ports. The camera and instruments were inserted, and I then moved over to the robotic console and took control of the camera and instruments. After careful thorough inspection of the abdominal cavity, I began my dissection at the hernia. The adhesions were taken down carefully using scissors with electrocautery. The incarcerated fatty tissue within the hernia defect was then carefully reduced. I then began creating a preperitoneal plane in the supraumbilical region using scissors with electrocautery. This was extended caudad towards the suprapubic region. This was dissected far enough laterally on each side to allow for mesh placement. I dissected far enough caudally to identify the pubic arch. I then measured the hernia size. The hernia measured 2 cm. The fascia was closed using an 0-Stratafix running suture in a vertical fashion. A Ventralight ST 15 cm x 10 cm mesh was then placed within the preperitoneal pocket. This was oriented vertically with the mesh centered on the hernia defect. The mesh was then secured at the center and 4 corners using 3-0 Vicryl simple interrupted sutures. The peritoneum was then closed over the mesh using 2-0 Stratafix running absorbable suture. There was a hole in the peritoneum where the hernia defect had been taken down and were some of the adhesiolysis had been performed. This was also closed using 3 0 V lock running absorbable sutur. The repair was inspected, and one final inspection was made around the abdominal cavity. The robotic instruments were then removed, and the robotic arms were diseng aged from the trocars. The ports were then removed under direct visualization, the camera was removed, and the pneumoperitoneum was released. The skin of the incisions was then approximated using 4-0 Monocryl subcuticular suture. Exofin glue was then applied on top. The patient was then awakened from anesthesia, extubated, and transferred to recovery. Implants Ventralight ST 15 cm x 10 cm mesh Estimated Blood Loss 10 Complications No immediate complications Condition Stable Disposition Same day [facility] Billing Surgery - Charge Forward: Surgery Billing
== END 2025-04-30 14:40 | disposition home or self-care (01) ==
PROVIDERS: PCP Internal Medicine; Visit Provider Surgery
PROC: (CPT 49592; principal; 2025-04-30 11:30)
DX: K43.0 Incisional hernia with obstruction, without gangrene (principal); K66.0 Peritoneal adhesions (postprocedural) (postinfection); E78.5 Hyperlipidemia, unspecified; K21.9 Gastro-esophageal reflux disease without esophagitis; E06.3 Autoimmune thyroiditis; Z98.890 Other specified postprocedural states; E66.9 Obesity, unspecified; Z68.32 Body mass index [BMI] 32.0-32.9, adult
CPT/HCPCS: 49592; S2900; A9270; C1781; J0690; J1100; J1885; J2003; J2250; J2405; J2704; J7120

== ENCOUNTER 2025-08-30 09:26 | Outpatient (CLI) | payer OTHER, SELFPAY | END 2025-08-30 09:27 | disposition home or self-care (01) | LOC: CHSLAB 09:27 | PROVIDERS: PCP Internal Medicine | DX: E55.9 Vitamin D deficiency, unspecified (principal) | CPT/HCPCS: 36415; 82306 ==

== ENCOUNTER 2025-10-27 16:19 | Emergency (ER) | payer OTHER, SELFPAY ==
[2025-10-27 16:28] VITALS: BP 151/71; PULSE 65; RESP 16; TEMP 36.3; O2SAT 99
--- NOTE | 2025-10-27 16:41 | ED.SKABFB ---
HPI - Skin/Abscess/Foreign Bdy General Chief complaint: Skin/Abscess/Foreign Body Stated complaint: Rash Time Seen by Provider: 10/27/25 16:41 Source: patient and RN notes reviewed Mode of arrival: ambulatory Limitations: no limitations History of Present Illness HPI narrative: 60-year-old female presents with concern for non comfortable rash on her right upper back that she noticed yesterday. Reports she had a late back ache prior to noticing the rash. She denies any fever, body aches, chills, sweats or general malaise. She is put triamcinolone cream on the rash without relief. Patient has only 1 kidney but reports normal kidney function MD complaint: rash Related Data Home Medications ?Medication ?Instructions ?Recorded ?Confirmed ?Last Taken ?Type citalopram 20 mg tablet 20 mg PO DAILY 02/01/21 10/27/25 04/30/25 History ergocalciferol (vitamin D2) 1,250 1,250 mcg PO WEEKLY 02/01/21 10/27/25 04/10/23 History mcg (50,000 unit) capsule (Vitamin D2) estradiol 1 mg tablet 1 mg PO DAILY 02/01/21 10/27/25 10/05/22 History levothyroxine 100 mcg capsule 100 mcg PO DAILY 02/01/21 10/27/25 04/30/25 History vitamin B complex (B 1 tablet PO DAILY 02/01/21 10/27/25 10/05/22 History Complex-Vitamin B12 tablet) calcium polycarbophil 625 mg 1,250 mg PO DAILY 08/26/22 10/27/25 10/05/22 History tablet (FiberCon) pantoprazole 40 mg tablet,delayed 40 mg PO DAILY 04/05/23 10/27/25 Unknown History release spironolactone 25 mg tablet 25 mg PO DAILY 04/05/23 10/27/25 Unknown History multivitamin with minerals-folic 1 tablet PO DAILY 04/25/25 10/27/25 Unknown History acid 0.4 mg tablet (One-A-Day Cholesterol Plus) Allergies Allergy/AdvReac Type Severity Reaction Status Date / Time Sulfa (Sulfonamide Allergy Unknown Rash Verified 10/27/25 16:29 Antibiotics) Review of Systems Review of Systems: CONSTITUTIONAL: Denies malaise, chills, sweats, or fever. EYES: Denies redness, or discharge. ENT: Denies rhinorrhea, congestion, swollen lips, swollen tongue CARDIOVASCULAR: Denies chest pain, palpitations, or edema. RESPIRATORY: Denies cough or dyspnea. GASTROINTESTINAL: Denies abdominal pain, nausea, vomiting SKIN: Reports uncomfortable rash on right upper back MUSCULOSKELETAL: Denies joint pain or myalgia. NEUROLOGIC: Denies headache. All systems reviewed & are unremarkable except as noted in HPI and below PMFSH Past Medical History Medical History (Updated 10/27/25 @ 16:51 by Joana Mujica APRN) Obesity Spigelian hernia Hyperlipidemia GERD (gastroesophageal reflux disease) Demian's disease Surgical History Surgical History (Updated 06/20/25 @ 09:50 by Deepa Lynn) History of incisional hernia repair 04/30/25 Laparoscopic 2 cm incarcerated incisional hernia repair with mesh, da Khai assisted Dr. Palomo Hx of hernia repair Open 3 cm incarcerated R Spigelian hernia rep w/mesh on 04/13/23 Rectocele 10/2021 [facility] History of total abdominal hysterectomy vaginal approach History of appendectomy As a child History of tonsillectomy and adenoidectomy As a child Social History Social History Smoking status: Never smoker Alcohol intake: current Drinks per week: 1 Alcohol use details: Rarely Substance use: never Substance use type: does not use Lack of Transportation: No Lack of Food: Never True Current Housing: I Have Housing Concerned About Future Housing: No Difficulty Paying Gas/Electric Bills: No Difficulty Paying for Meds: No Currently Unemployed: No Education: High School Diploma/GED Difficulty w/ Childcare or Family Care: No Living arrangements: with family 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 There is no relevant family history pertinent to the presenting complaint Exam Narrative: GENERAL: Well-appearing, well-nourished, and in no acute distress. HEAD: Normocephalic, atraumatic. EYES: PERRLA, conjunctivae clear, and EOMI. ENT: Mucous membranes moist. Oropharynx without edema, erythema or lesions. NECK: Supple. No lymphadenopathy CHEST: Clear to auscultation. No respiratory distress. HEART: Regular rate and rhythm. SKIN: Warm, dry. Zosteriform rash noted to the right upper back under the bra line NEURO: Alert and oriented x3. PSYCH: Normal mood and affect Course Course Emergency Course: Patient is aware of diagnosis, understands and agrees to treatment plan. Anticipatory guidance given. Patient agrees to follow-up as directed and is aware of reasons to seek care at the emergency department. Portions of this record may have been created with voice recognition software Level of Care: [facility] Visit Vital Signs Vital signs: Vital Signs Temperature 97.4 F L 10/27/25 16:28 Pulse Rate 65 10/27/25 16:28 Respiratory Rate 16 10/27/25 16:28 Blood Pressure 151/71 H 10/27/25 16:28 Pulse Oximetry 99 10/27/25 16:28 Temperature 97.4 F L 10/27/25 16:28 Pulse Rate 65 10/27/25 16:28 Respiratory Rate 16 10/27/25 16:28 Blood Pressure 151/71 H 10/27/25 16:28 Pulse Oximetry 99 10/27/25 16:28 MDM Differential Diagnosis Differential Diagnosis: I evaluated this patient in the [facility]. History is obtained from patient who is an independent historian and physical exam was performed.? Available medical records were reviewed. ? Exam findings and relevant testing show no acute concerns or changes; patient is non-toxic appearing and is in no distress. ? Does not appear at this time to be erythema multiforme, bullous, SJS, TEN; no evidence at this time to suggest RMSF, endocarditis or Lyme disease; patient looks well, nontoxic and is tolerating oral intake; no neurologic signs or symptoms; no headache, photophobia or neck pain; afebrile; appropriate for initial outpatient treatment; discussed the importance of follow-up, patient agrees; question, viral exanthema, contact dermatitis, allergic dermatitis, eczema, urticaria, shingles. No soft palate or uvula edema, no tongue, lip edema or other mucosal involvement, no respiratory compromise, no stridor, no wheezing, no wheezing, no history of syncope, no hypotension, no nausea, vomiting, or diarrhea. Instructed patient to go to nearest ER immediately for any worsening symptoms including but not limited to: fever, spreading rash, pain, sore throat, headache, dizziness, chest pain, trouble breathing, or any symptoms concerning to the patient. Differential diagnosis and treatment plan were discussed with the patient. Patient agrees with discussion and after shared medical decision making agrees with plan of care. All questions were answered to the patient's satisfaction. Patient is appropriate for outpatient treatment and follow-up. Discharge Plan Discharge Clinical Impression: Shingles Patient Disposition: Home Condition: Stable Instructions: Shingles (ED) Additional Instructions: Alternate Tylenol and Motrin for pain, body aches, fever. You may take 2 regular strength Tylenol every 4 hours, alternate with 3 regular strength Motrin every 6 hours so you are taking something every 2-3 hours. Apply topical pain medicine and take antiviral medicine as prescribed. Shingles pain can last weeks, sometimes months. If your pain persists after antiviral medication is complete please follow-up with your primary care provider for a long-term pain control plan. Follow-up with your doctor in the next 2 to 3 days. Go to the emergency room if you have any urgent concerns. Patient Language: Sinhala Prescriptions: New valacyclovir 1 gram tablet 1,000 mg PO TID 7 Days Qty: 21 0RF No Action citalopram 20 mg tablet 20 mg PO DAILY levothyroxine 100 mcg capsule 100 mcg PO DAILY estradiol 1 mg tablet 1 mg PO DAILY Rx Instructions: off 1 week; repeat cycle vitamin B complex [B Complex-Vitamin B12] Tablet 1 tablet PO DAILY ergocalciferol (vitamin D2) [Vitamin D2] 1,250 mcg (50,000 unit) capsule 1,250 mcg PO WEEKLY calcium polycarbophil [FiberCon] 625 mg tablet 1,250 mg PO DAILY spironolactone 25 mg tablet 25 mg PO DAILY pantoprazole 40 mg tablet,delayed release (DR/EC) 40 mg PO DAILY multivit with min-folic acid [One-A-Day Cholesterol Plus] 0.4 mg tablet 1 tablet PO DAILY Follow-up/Referrals: Cesar Torres MD [Primary Care Provider, Internal Medicine] Time of Disposition: 16:51
== END 2025-10-27 16:55 | disposition home or self-care (01) ==
PROVIDERS: Emergency Provider Nurse Practitioner; PCP Internal Medicine
DX: B02.9 Zoster without complications (principal); E06.3 Autoimmune thyroiditis; E78.5 Hyperlipidemia, unspecified; K21.9 Gastro-esophageal reflux disease without esophagitis; E66.9 Obesity, unspecified; Z68.32 Body mass index [BMI] 32.0-32.9, adult
CPT/HCPCS: 99213; G0463